=== PATIENT | male | born 1965 | race Caucasian/White ===

== ENCOUNTER 2018-12-14 16:34 | Emergency (ER) | payer MEDICARE, OTHER, SELFPAY ==
[2018-12-14] VITALS (24 sets, daily range): BP systolic 113–144; BP diastolic 47–108; PULSE 71–139; RESP 10–46; TEMP 36.9; O2SAT 94–99
[2018-12-14 17:15] LABS: Absolute Basophil Count 0.01 k/cumm (0.0-0.2); Absolute Monocyte Count 0.35 k/cumm (0.11-0.7); Absolute Neutrophil Count 2.77 k/cumm (1.2-6.7); Basophils % 0.3; Eosinophils % 5.1; HCT 25.8 % (40.0-50.0); HGB 8.2 g/dL (13.5-17.5); Lymphocytes % 15.3; Mean Corp. HGB Concentration 31.8 g/dL (32.0-36.0); Mean Corpuscular Volume 107.1 fL (80-95); Mean Platelet Volume 8.9 fL (8.0-11.0); Monocytes % 8.9; Neutrophils % 70.4; Platelet Count 215 x1000/uL (130-400); RBC 2.41 m/cumm (4.50-6.00); RBC Distribution Width 15.7 % (11.8-14.1); White Blood Cell Count 3.93 k/cumm (4.4-10.8)
--- NOTE | 2018-12-14 17:20 | ED.GENADUL_ITS ---
Discharge Plan Disposition Patient Disposition: HOME Condition: Improving Discharge Details Chief Complaint: GenMedical Clinical Impression: Hypocalcemia Primary Care Provider: Adalberto Ly ED Provider: Axel Nicole Home Meds and New Rx's Prescriptions: No Action Renal Vitamin 0.8 mg tablet 1 tab PO DAILY RF: 0 omeprazole 20 mg capsule,delayed release(DR/EC) 20 mg PO DAILY RF: 0 pen needle, diabetic 1 EACH needle 1 ea Sub-Q BID Qty: 100 RF: 5 gabapentin 100 MG capsule 100 mg PO As directed Qty: 270 RF: 4 FreeStyle Lite Strips strip 1 ea Miscellaneous TID Qty: 200 RF: 5 heparin (porcine) 5,000 UNITS/ML solution 5,000 units DIRECTED RF: 0 sevelamer HCl [Renagel] 800 mg tablet 800 mg PO .DAILY W/MEALS PRNRF: 0 Humalog U-100 Insulin 100 unit/mL Cartridge RF: 0 calcitriol 0.5 mcg Capsule 0.5 mcg PO BID RF: 0 Discharge Instructions Instructions: Hypocalcemia (ED) Additional Instructions: You have notable hypocalcemia, per your request, he will be going home. Please continue taking your supplements and Tums. It is absolutely imperative that if you have any return of your symptoms that you return immediately. Do not miss your dialysis appointment tomorrow. If you notice any worsening of your symptoms, or any new symptoms such as vomiting, diarrhea, fever, chills, shortness of breath, chest pain, numbness, weakness, or fainting , please return immediately to the emergency department for reevaluation. Please follow up with your primary care provider as soon as possible for reassessment and reevaluation. As always, it was a pleasure participating in your medical care today. Referrals: Adalberto Ly MD [Primary Care Provider] - Discharge Data Discharge Date/Time-TO BE ENTERED AT DEPARTURE: 12/14/18 20:18 Medical Decision Making This is a pleasant 53-year-old male with a past surgical history of bilateral nephrectomy secondary to cancer currently on dialysis Tuesday, gastric bypass, and recent parathyroidectomy 1 week ago. He presents with numbness and tingling in his fingers and toes. He also feels notably fatigued and weak. No focal neurologic deficits, no clinical evidence of stroke. Signs and symptoms are notably concerning for calcium abnormality. He shows no evidence of significant tetany, so I feel that his calcium is most likely mildly low. We will rehydrate, evaluate for his electrolyte status, and reassess. 9:00 PM Patient's laboratory work-up has returned, calcium is low at 7.2. Patient was given 1 amp of calcium gluconate, and he tolerated this well. The remainder of his electrolytes are all within normal limits. Hemoglobin is slightly low but near his baseline. Patient's calcium is normally at a lower baseline around 8.0-8.1. On electrolyte recheck his calcium has come up to 7.5. The patient states that the numbness and tingling has resolved, he feels much more energetic and does not feel the fatigue but he had previously. Repeat neurologic exam continues to show no focal neurologic deficits. Subjective sensation component is notably improved. I did talk to the patient about staying overnight for continued calcium replacement, however the patient made it very clear that he would not be staying overnight and that he would like to go home. He does have dialysis tomorrow, he states that he can get checked out again at that time. I discussed with him the risks of this plan, the patient understands this. I did give the patient additional options of further work-up and treatment here in the ED, but he made it clear that he would like to be discharged now. Respecting the patient's wishes, and in light of the notable clinical improvement with the incremental improvement in his calcium via a laboratory perspective, I feel that his discharge is not advised, but the patient understands the risks of this and accepts these risks. Patient will be discharged home with close follow-up tomorrow, dialysis tomorrow. I feel that his hypocalcemia is secondary to his parathyroid surgery, and a lack of proper repletion at dialysis. Discussed the importance of close follow-up with his primary care provider as well as his thyroid surgeon in regards to this. I have extensively reviewed the treatment plan and discharge instructions with the patient and their family. I have addressed all patient concerns at this time. The patient and family was made aware of what symptoms to monitor for that would warrant a return to the emergency department. Discussed the plan with the patient and family, they demonstrate verbal understanding and agreement with our assessment and plan at this time. EKG 16: 51 Rate 78, sinus rhythm, KS 206, QTc 490, QRS 100, no significant ST elevations or depressions, no significant T wave inversions, no Q waves. HPI General Date/Time Provider Initiated Documentation: 12/14/18 16:41 . HPI Narrative: This is a pleasant 53-year-old male with a past medical history of gastric bypass surgery, bilateral nephrectomy secondary to cancer now on dialysis Tuesday, and recent parathyroid surgery 1 week ago, who presents today for evaluation of fatigue, weakness, and tingling in his hands and feet. Patient states that he has been taking his calcitriol, and numerous Tums pills after his parathyroid surgery, however his symptoms have continued and worsened. He denies any chest pain, chest heaviness, shortness of breath, nausea, vomiting, diarrhea, arm neck or shoulder pain, headache, or neck stiffness. He denies any other complaints. He denies any other modifying factors. He denies any postoperative pain at the surgical site. Related Data Home Medications Medication Instructions Recorded Confirmed heparin (porcine) 5,000 units DIRECTED 02/24/16 12/14/18 pen needle, diabetic #100 ea 05/24/17 07/06/18 gabapentin 100 mg PO As directed #270 cap 01/18/18 12/14/18 omeprazole 20 mg capsule,delayed 20 mg PO DAILY 05/02/18 12/14/18 release sevelamer HCl 800 mg tablet 800 mg PO .DAILY W/MEALS PRN 05/02/18 12/14/18 vitamin B complex-vitamin C-folic 1 tab PO DAILY 05/02/18 12/14/18 acid 0.8 mg tablet blood sugar diagnostic strips #200 strip 11/07/18 calcitriol 0.5 mcg PO BID 12/14/18 12/14/18 insulin lispro [Humalog U-100 12/14/18 Insulin] Previous Rx's Medication Instructions Recorded pen needle, diabetic #100 ea 05/24/17 gabapentin 100 mg PO As directed #270 cap 01/18/18 blood sugar diagnostic strips #200 strip 11/07/18 Allergies Allergy/AdvReac Type Severity Reaction Status Date / Time simvastatin AdvReac Intermediate PROBLEMS Unverified 12/14/18 17:06 WITH FEET General Stated Complaint: GenMedical HIEU: 3 Review of Systems Review of Systems All systems reviewed & are unremarkable except as noted in HPI and below PFSH Medical History DM (diabetes mellitus) Diabetic retinopathy End stage renal failure on dialysis Surgical History Status post laparoscopic sleeve gastrectomy (Chronic) Colonoscopy - MAC (08/03/17) Nephrectomy (06/30/11) vitrectomy x 3 Family History Maternal Grandmother Lobular carcinoma of breast Mother No problems noted. Father No problems noted. Brother Hyperlipidemia Daughter No problems noted. Daughter No problems noted. Daughter No problems noted. Social History Smoking/Tobacco Use Status: Former Tobacco Use Quit Date: 06/13/92 Second Hand Exposure: Yes Alcohol Intake: never Drug use: Current Sobriety Substance use type: does not use Pets and animals: No Duration: < 15 minutes/day Frequency: daily Nani/Worship: Restorationism Special nani needs: No Do you feel safe in your relationship?: Yes Exam Narrative Exam Narrative: 1.Const: Well-nourished, Well-developed, appearing stated age 2.Eyes: PERRL, no conjunctival injection, and symmetrical lids. 3.ENT: Atraumatic external nose and ears. Moist MM. Neck: Symmetric, trachea midline, No thyromegaly. 4.CVS: +S1/S2, No murmurs or gallops. Peripheral pulses 2+ and equal in all extremities. Brisk capillary refill in all extremities. 5.RESP: Unlabored respiratory effort. Clear to auscultation bilaterally. No wheezes rales or rhonchi 6.GI: Soft, Nontender/Nondistended, No hepatosplenomegaly. No guarding or rebound. 7.MSK: Normocephalic/Atraumatic, Extremities w/o deformity or ttp No cyanosis or clubbing, Normal movement of all extremities. Negative Chvostic and Trousseau sign. Patellar reflex +1 bilaterally. No evidence of tetany for the arms or lower extremities. 8.Skin: Warm, Dry. No rashes or lesions. Mild pallor 9.Neuro: environment coordinator II-XII grossly intact. Sensation grossly intact, no focal neurologic deficits. Two-point discrimination is intact on the fingers and in spite of his subjective symptoms of tingling. Sensation is decreased in the lower extremities, he does have a history of peripheral neuropathy. All 6 cardinal planes of vision are fully intact. No evidence of rotatory or vertical nystagmus. The patient demonstrated a normal gvlfmm-yglm-kezmqe, good dexterity. There was no evidence of dysdiadochokinesia. Patient was able to ambulate without difficulty. There was no wide-based gait. Romberg, and cceb-si-tinn are both normal on testing. Sensation was intact bilaterally as well as muscle strength bilaterally for all extremities. Patient was able to verbalize butter cup with no slurring, or miss pronunciation. 10.Psych: (AAO) x3. Appropriate mood and affect Course Vital Signs Temperature 36.9 C 12/14/18 16:42 Pulse 79 12/14/18 16:42 Respiratory Rate 16 12/14/18 16:42 Blood Pressure 134/65 12/14/18 16:42 Pulse Oximetry 96 12/14/18 16:42 Temperature 36.9 C 12/14/18 16:42 Temperature Source Skin 12/14/18 16:42 Pulse 79 12/14/18 16:42 Respiratory Rate 16 12/14/18 16:42 Respiratory Effort Non-Labored 12/14/18 16:42 Blood Pressure 134/65 12/14/18 16:42 Pulse Oximetry 96 12/14/18 16:42 Oxygen Delivery Method Room Air 12/14/18 16:42 Oxygen Flow Rate 0 12/14/18 16:42 Pain Level 3 12/14/18 16:42
[2018-12-14 17:33] LABS: ALT 8 U/L (12-78); AST 6 U/L (15-37); Albumin 3.1 g/dL (3.4-5.0); Alkaline Phosphatase 106 U/L (46-116); Anion Gap 8.9 mmol/L (3-11); BUN 60 mg/dL (7-18); Bilirubin, Total 0.6 mg/dL (0.2-1.0); CO2 32.1 mmol/L (21.0-32.0); Calcium 7.2 mg/dL (8.5-10.1); Chloride 100 mmol/L (98-107); Estimated GFR 6.42 (mL/min/1.73m2); Glucose 175 mg/dL (70-100); Sodium 141 mmol/L (136-145); TSH (W/Ref FT4) 0.03 uIU/mL (0.358-3.74); Total Protein 7.2 g/dL (6.4-8.2)
[2018-12-14 17:36] LABS: CREATININE 8.75 mg/dL (0.70-1.30); Troponin I < 0.05 ng/mL (0.00-0.06)
[2018-12-14 17:49] LABS: Anisocytosis 2+; Diff Comment RBC Morph Reviewed; Macrocytosis 3+; Polychromasia Present
[2018-12-14 18:46] LABS: FREE T4 1.92 ng/dL (0.76-1.46)
[2018-12-14 19:01] LABS: ALT 15 U/L (12-78); AST 13 U/L (15-37); Albumin 2.9 g/dL (3.4-5.0); Alkaline Phosphatase 101 U/L (46-116); Anion Gap 10.1 mmol/L (3-11); BUN 60 mg/dL (7-18); Bilirubin, Total 0.6 mg/dL (0.2-1.0); CO2 30.9 mmol/L (21.0-32.0); Calcium 7.5 mg/dL (8.5-10.1); Chloride 101 mmol/L (98-107); Estimated GFR 6.34 (mL/min/1.73m2); Glucose 135 mg/dL (70-100); Sodium 142 mmol/L (136-145)
[2018-12-14 19:08] LABS: CREATININE 8.85 mg/dL (0.70-1.30)
[2018-12-16 14:07] LABS: Calcitonin <5.0 pg/mL (<=14.3)
== END 2018-12-14 20:18 | disposition home or self-care (01) ==
PROVIDERS: Emergency Provider Student in an Organized Health Care Education/Training Program; PCP Family Medicine
DX: E83.51 Hypocalcemia (principal); Z90.5 Acquired absence of kidney; Z85.528 Personal history of other malignant neoplasm of kidney; Z99.2 Dependence on renal dialysis; E89.2 Postprocedural hypoparathyroidism; E11.22 Type 2 diabetes mellitus with diabetic chronic kidney disease; N18.6 End stage renal disease
CPT/HCPCS: 36415; 80053; 93005; 96365; 99284; 82308; 83735; 84439; 84443; 84484; 85025; 93010; J0610

== ENCOUNTER 2019-03-23 02:41 | Outpatient (CLI) | payer MEDICARE, SELFPAY ==
[2019-03-23 10:18] LABS: HCT 34.1 % (40.0-50.0); Mean Corp. HGB Concentration 32.3 g/dL (32.0-36.0); Mean Corpuscular Hemoglobin 31.8 pg (27.0-33.0); Mean Corpuscular Volume 98.6 fL (80-95); Mean Platelet Volume 8.9 fL (8.0-11.0); Platelet Count 308 x1000/uL (130-400); RBC 3.46 m/cumm (4.50-6.00); RBC Distribution Width 15.4 % (11.8-14.1); White Blood Cell Count 4.86 k/cumm (4.4-10.8)
[2019-03-23 11:41] LABS: ALT 17 U/L (16-63); AST 12 U/L (15-37); Albumin 3.7 g/dL (3.4-5.0); Alkaline Phosphatase 67 U/L (46-116); Anion Gap 11.9 mmol/L (3-11); BUN 47 mg/dL (7-18); Bilirubin, Total 0.3 mg/dL (0.2-1.0); CO2 23.1 mmol/L (21.0-32.0); CREATININE 2.31 mg/dL (0.70-1.30); Calcium 7.7 mg/dL (8.5-10.1); Chloride 106 mmol/L (98-107); Estimated GFR 29.86 (mL/min/1.73m2); Glucose 108 mg/dL (70-100); Potassium 4.9 mmol/L (3.5-5.1); Sodium 141 mmol/L (136-145); Total Protein 7.1 g/dL (6.4-8.2); Uric Acid 9.1 mg/dL (3.5-7.2)
[2019-03-23 11:51] LABS: Cholesterol 228 mg/dL (50-200)
[2019-03-24 12:20] LABS: Tacrolimus 7.2 ng/ml
== END 2019-03-23 03:01 ==
PROVIDERS: PCP Family Medicine; Visit Provider Internal Medicine Nephrology
DX: N25.81 Secondary hyperparathyroidism of renal origin (principal); Z94.0 Kidney transplant status; Z79.899 Other long term (current) drug therapy; Z29.8 Encounter for other specified prophylactic measures
CPT/HCPCS: 36415; 80053; 85027; 80197; 81003; 82465; 82565; 83735; 84156; 84550

== ENCOUNTER 2019-04-03 08:05 | Outpatient (CLI) | payer MEDICARE, OTHER, SELFPAY ==
[2019-04-03 08:55] LABS: HCT 36.5 % (40.0-50.0); HGB 11.7 g/dL (13.5-17.5); Mean Corp. HGB Concentration 32.1 g/dL (32.0-36.0); Mean Corpuscular Hemoglobin 31.2 pg (27.0-33.0); Mean Corpuscular Volume 97.3 fL (80-95); Mean Platelet Volume 9.1 fL (8.0-11.0); Platelet Count 312 x1000/uL (130-400); RBC 3.75 m/cumm (4.50-6.00); RBC Distribution Width 15.3 % (11.8-14.1); White Blood Cell Count 5.05 k/cumm (4.4-10.8)
[2019-04-03 09:41] LABS: Bilirubin Negative (Negative); Blood Negative (Negative); Clarity Clear (Clear); Glucose Negative (Negative); Ketones Negative (Negative); Leukocyte Esterase Negative (Negative); Nitrite Negative (Negative); Specific Gravity 1.015 (1.005-1.025); Urobilinogen 0.2 EU/dL (Up TO 0.2); pH 5.5 (5-8)
[2019-04-03 10:37] LABS: PROTEIN 16.1 mg/dL
[2019-04-03 10:41] LABS: ALT 18 U/L (16-63); AST 12 U/L (15-37); Albumin 3.6 g/dL (3.4-5.0); Alkaline Phosphatase 62 U/L (46-116); Anion Gap 12.6 mmol/L (3-11); BUN 47 mg/dL (7-18); Bilirubin, Total 0.4 mg/dL (0.2-1.0); CO2 22.4 mmol/L (21.0-32.0); CREATININE 2.26 mg/dL (0.70-1.30); Calcium 8.5 mg/dL (8.5-10.1); Chloride 105 mmol/L (98-107); Estimated GFR 30.62 (mL/min/1.73m2); Glucose 124 mg/dL (70-100); Magnesium 1.8 mg/dL (1.8-2.4); PHOSPHORUS 3.4 mg/dL (2.6-4.7); Potassium 4.6 mmol/L (3.5-5.1); Sodium 140 mmol/L (136-145); Total Protein 6.8 g/dL (6.4-8.2); Uric Acid 8.9 mg/dL (3.5-7.2)
[2019-04-03 11:07] LABS: COMMENT (LAB VIEW ONLY) 57.74 mg/dL; Prot/Crea Ur Ratio 0.27
[2019-04-03 11:26] LABS: Cholesterol 241 mg/dL (50-200)
[2019-04-11 08:57] LABS: Tacrolimus 8.8 ng/ml
== END 2019-04-03 08:25 ==
PROVIDERS: PCP Family Medicine; Visit Provider Internal Medicine Nephrology
DX: Z94.0 Kidney transplant status (principal); Z79.899 Other long term (current) drug therapy
CPT/HCPCS: 36415; 80053; 85027; 80197; 81003; 82465; 82565; 83735; 84100; 84156; 84550

== ENCOUNTER 2019-07-20 08:19 | Outpatient (CLI) | payer MEDICARE, OTHER, SELFPAY ==
[2019-07-20 08:50] LABS: HCT 40.7 % (40.0-50.0); HGB 13.8 g/dL (13.5-17.5); Mean Corp. HGB Concentration 33.9 g/dL (32.0-36.0); Mean Corpuscular Hemoglobin 31.2 pg (27.0-33.0); Mean Corpuscular Volume 91.9 fL (80-95); Mean Platelet Volume 9.4 fL (8.0-11.0); Platelet Count 225 x1000/uL (130-400); RBC 4.43 m/cumm (4.50-6.00); RBC Distribution Width 14.8 % (11.8-14.1)
[2019-07-20 08:51] LABS: Bilirubin Negative (Negative); Blood Negative (Negative); Clarity Clear (Clear); Glucose Negative (Negative); Ketones Negative (Negative); Leukocyte Esterase Negative (Negative); Nitrite Negative (Negative); Specific Gravity 1.015 (1.005-1.025); Urobilinogen 0.2 EU/dL (Up TO 0.2)
[2019-07-20 09:32] LABS: ALT 29 U/L (16-63); AST 24 U/L (15-37); Albumin 4.1 g/dL (3.4-5.0); Alkaline Phosphatase 67 U/L (46-116); BUN 53 mg/dL (7-18); Bilirubin, Total 0.4 mg/dL (0.2-1.0); CREATININE 2.41 mg/dL (0.70-1.30); Calcium 8.4 mg/dL (8.5-10.1); Chloride 107 mmol/L (98-107); Estimated GFR 28.43 (mL/min/1.73m2); Glucose 71 mg/dL (74-106); Magnesium 1.7 mg/dL (1.8-2.4); PHOSPHORUS 3.5 mg/dL (2.6-4.7); Potassium 4.5 mmol/L (3.5-5.1); Sodium 144 mmol/L (136-145); Total Protein 7.2 g/dL (6.4-8.2); Uric Acid 8.5 mg/dL (3.5-7.2)
[2019-07-20 09:34] LABS: Cholesterol 240 mg/dL (<200)
[2019-07-20 09:38] LABS: White Blood Cell Count 1.65 k/cumm (4.4-10.8)
[2019-07-20 09:43] LABS: PROTEIN 17.4 mg/dL
[2019-07-20 09:46] LABS: COMMENT (LAB VIEW ONLY) 82.39 mg/dL; Prot/Crea Ur Ratio 0.21
[2019-07-23 14:20] LABS: Tacrolimus 10.3 ng/mL (See Note)
== END 2019-07-20 08:39 ==
PROVIDERS: PCP Family Medicine; Visit Provider Internal Medicine Nephrology
DX: Z94.0 Kidney transplant status (principal); Z79.899 Other long term (current) drug therapy
CPT/HCPCS: 36415; 80053; 85027; 80197; 81003; 82465; 82565; 83735; 84100; 84156; 84550

== ENCOUNTER 2019-08-14 08:46 | Outpatient (CLI) | payer MEDICARE, OTHER, SELFPAY ==
[2019-08-14 09:54] LABS: PROTEIN 6.2 mg/dL
[2019-08-14 10:09] LABS: COMMENT (LAB VIEW ONLY) 24.92 mg/dL; Prot/Crea Ur Ratio 0.24
[2019-08-14 10:11] LABS: Bilirubin Negative (Negative); Blood Negative (Negative); Clarity Clear (Clear); Glucose Negative (Negative); Ketones Negative (Negative); Leukocyte Esterase Negative (Negative); Nitrite Negative (Negative); Urobilinogen 0.2 EU/dL (Up TO 0.2); pH 5.5 (5-8)
[2019-08-14 10:16] LABS: HCT 38.5 % (40.0-50.0); HGB 13.1 g/dL (13.5-17.5); Mean Corpuscular Volume 94.1 fL (80-95); Platelet Count 220 x1000/uL (130-400); RBC 4.09 m/cumm (4.50-6.00); RBC Distribution Width 15.2 % (11.8-14.1); White Blood Cell Count 2.66 k/cumm (4.4-10.8)
[2019-08-14 10:21] LABS: Cholesterol 255 mg/dL (<200)
[2019-08-14 10:23] LABS: ALT 30 U/L (16-63); AST 26 U/L (15-37); Albumin 3.9 g/dL (3.4-5.0); Alkaline Phosphatase 64 U/L (46-116); Anion Gap 11.2 mmol/L (3-11); BUN 50 mg/dL (7-18); Bilirubin, Total 0.5 mg/dL (0.2-1.0); CO2 23.8 mmol/L (21.0-32.0); CREATININE 2.25 mg/dL (0.70-1.30); Calcium 7.8 mg/dL (8.5-10.1); Chloride 104 mmol/L (98-107); Estimated GFR 30.78 (mL/min/1.73m2); Glucose 106 mg/dL (74-106); Magnesium 1.8 mg/dL (1.8-2.4); PHOSPHORUS 3.5 mg/dL (2.6-4.7); Potassium 4.8 mmol/L (3.5-5.1); Sodium 139 mmol/L (136-145); Uric Acid 7.9 mg/dL (3.5-7.2)
[2019-08-15 14:16] LABS: Tacrolimus 7.3 ng/mL (See Note)
== END 2019-08-14 09:06 ==
PROVIDERS: PCP Family Medicine; Visit Provider Internal Medicine Nephrology
DX: Z94.0 Kidney transplant status (principal); Z79.899 Other long term (current) drug therapy
CPT/HCPCS: 36415; 80053; 85027; 80197; 81003; 82465; 82565; 83735; 84100; 84156; 84550

== ENCOUNTER 2019-09-17 01:51 | Outpatient (CLI) | payer OTHER, MEDICARE, SELFPAY ==
[2019-09-17 07:30] LABS: Bilirubin Negative (Negative); Blood Negative (Negative); Clarity Clear (Clear); Glucose Negative (Negative); Ketones Negative (Negative); Leukocyte Esterase Negative (Negative); Nitrite Negative (Negative); Specific Gravity 1.015 (1.005-1.025); Urobilinogen 0.2 EU/dL (Up TO 0.2); pH 6.5 (5-8)
[2019-09-17 07:33] LABS: HCT 38.7 % (40.0-50.0); HGB 13.3 g/dL (13.5-17.5); Mean Corp. HGB Concentration 34.4 g/dL (32.0-36.0); Mean Corpuscular Hemoglobin 33.1 pg (27.0-33.0); Mean Corpuscular Volume 96.3 fL (80-95); Mean Platelet Volume 9.8 fL (8.0-11.0); Platelet Count 213 x1000/uL (130-400); RBC 4.02 m/cumm (4.50-6.00); RBC Distribution Width 14.5 % (11.8-14.1); White Blood Cell Count 3.59 k/cumm (4.4-10.8)
[2019-09-17 08:15] LABS: Hemoglobin A1C 5.9 % (3.8-5.6)
[2019-09-17 08:22] LABS: PROTEIN 8.8 mg/dL
[2019-09-17 08:24] LABS: COMMENT (LAB VIEW ONLY) 53.25 mg/dL; Prot/Crea Ur Ratio 0.16
[2019-09-17 08:25] LABS: Cholesterol 251 mg/dL (<200)
[2019-09-17 08:34] LABS: ALT 35 U/L (16-63); AST 27 U/L (15-37); Albumin 3.9 g/dL (3.4-5.0); Alkaline Phosphatase 62 U/L (46-116); Anion Gap 10.9 mmol/L (3-11); BUN 46 mg/dL (7-18); Bilirubin, Total 0.5 mg/dL (0.2-1.0); CO2 26.1 mmol/L (21.0-32.0); CREATININE 2.41 mg/dL (0.70-1.30); Calcium 8.7 mg/dL (8.5-10.1); Chloride 102 mmol/L (98-107); Estimated GFR 28.43 (mL/min/1.73m2); Glucose 119 mg/dL (74-106); Magnesium 1.7 mg/dL (1.8-2.4); PHOSPHORUS 4.3 mg/dL (2.6-4.7); Potassium 4.4 mmol/L (3.5-5.1); Sodium 139 mmol/L (136-145); Total Protein 7.3 g/dL (6.4-8.2); Uric Acid 8.2 mg/dL (3.5-7.2)
[2019-09-18 13:07] LABS: Tacrolimus 8.3 ng/mL (See Note)
== END 2019-09-17 02:11 ==
PROVIDERS: PCP Family Medicine; Visit Provider Internal Medicine Nephrology
DX: E11.9 Type 2 diabetes mellitus without complications (principal); Z94.0 Kidney transplant status; Z79.899 Other long term (current) drug therapy; Z51.81 Encounter for therapeutic drug level monitoring
CPT/HCPCS: 36415; 80053; 85027; 80197; 81003; 82465; 82565; 83036; 83735; 84100; 84156; 84550

== ENCOUNTER 2019-10-23 01:37 | Outpatient (CLI) | payer OTHER, MEDICARE, SELFPAY ==
[2019-10-23 16:34] LABS: HCT 39.7 % (40.0-50.0); HGB 13.5 g/dL (13.5-17.5); Mean Corpuscular Hemoglobin 32.1 pg (27.0-33.0); Mean Corpuscular Volume 94.5 fL (80-95); Mean Platelet Volume 9.8 fL (8.0-11.0); Platelet Count 202 x1000/uL (130-400)
[2019-10-23 16:36] LABS: Bilirubin Negative (Negative); Blood Negative (Negative); Clarity Clear (Clear); Glucose Negative (Negative); Ketones Negative (Negative); Leukocyte Esterase Negative (Negative); Nitrite Negative (Negative); Urobilinogen 0.2 EU/dL (Up TO 0.2); pH 5.5 (5-8)
[2019-10-23 17:31] LABS: PROTEIN < 6.0 mg/dL
[2019-10-23 17:32] LABS: COMMENT (LAB VIEW ONLY) 33.26 mg/dL
[2019-10-23 17:36] LABS: Cholesterol 248 mg/dL (<200)
[2019-10-23 17:40] LABS: ALT 34 U/L (16-63); AST 26 U/L (15-37); Alkaline Phosphatase 66 U/L (46-116); Anion Gap 11.7 mmol/L (3-11); BUN 44 mg/dL (7-18); Bilirubin, Total 0.4 mg/dL (0.2-1.0); CO2 22.3 mmol/L (21.0-32.0); CREATININE 2.37 mg/dL (0.70-1.30); Calcium 8.6 mg/dL (8.5-10.1); Chloride 103 mmol/L (98-107); Estimated GFR 28.88 (mL/min/1.73m2); Glucose 115 mg/dL (74-106); Magnesium 1.7 mg/dL (1.8-2.4); PHOSPHORUS 4.3 mg/dL (2.6-4.7); Potassium 4.3 mmol/L (3.5-5.1); Sodium 137 mmol/L (136-145); Total Protein 7.3 g/dL (6.4-8.2); Uric Acid 8.3 mg/dL (3.5-7.2)
[2019-10-23 18:27] LABS: White Blood Cell Count 2.17 k/cumm (4.4-10.8)
[2019-10-25 15:33] LABS: Tacrolimus 10.7 ng/mL (See Note)
== END 2019-10-23 01:57 ==
PROVIDERS: PCP Family Medicine; Visit Provider Internal Medicine Nephrology
DX: Z94.0 Kidney transplant status (principal); Z79.899 Other long term (current) drug therapy
CPT/HCPCS: 36415; 80053; 85027; 80197; 81003; 82465; 82565; 83735; 84100; 84156; 84550

== ENCOUNTER 2020-02-18 18:16 | Emergency (ER) | payer MEDICARE, OTHER, SELFPAY ==
[2020-02-18 18:21] VITALS: BP 136/63; PULSE 91; RESP 18; TEMP 36.5; O2SAT 98
--- NOTE | 2020-02-18 18:30 | DI.RAD_ITS ---
EXAM: XR TOE LT SECOND CLINICAL HISTORY: diabetic foot infection ? osteo. TECHNIQUE: 2D digital imaging was performed. COMPARISON: No exams were available for comparison FINDINGS: BONES: No acute fracture is present. No bony destructive lesion is seen. The tip of the distal phal anx is not optimally profiled. JOINTS: No dislocation present. SOFT TISSUE: Vascular calcifications. Soft tissue swelling around the distal aspect of the 2nd toe. IMPRESSION: No no radiographic evidence of osteomyelitis. DATA REPOSITORY: RADIATION DOSE DELIVERED:
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
[2020-02-18 19:20] LABS: Abs Immature Grans 0.05 10^3/uL (0.0-0.06); Absolute Basophil Count 0.02 10^3/uL (0.0-0.2); Absolute Eosinophil Count 0.11 10^3/uL (0.0-0.7); Absolute Lymphocyte Count 0.55 10^3/uL (1.2-3.4); Absolute Monocyte Count 0.83 10^3/uL (0.1-0.8); Absolute Neutrophil Count 6.68 10^3/uL (1.2-6.7); Basophils % 0.2; Eosinophils % 1.3; HCT 35.4 % (40.0-50.0); HGB 11.6 g/dL (13.5-17.5); Immature Grans % 0.6; Lymphocytes % 6.7; MCHC 32.8 % (32.0-36.0); MCV 97.5 fL (80-95); MPV 9.8 fL (8.0-11.0); Monocytes % 10.1; Neutrophils % 81.1; Nucleated RBC 0 %; Platelet Count 203 10^3/uL (130-400); RBC 3.63 10^6/uL (4.36-5.78); RDW 15.4 % (11.8-14.1); RDW-SD 55.6 fL; WBC 8.24 10^3/uL (4.4-10.8)
[2020-02-18 19:33] LABS: ALT 20 U/L (16-63); AST 14 U/L (15-37); Albumin 3.4 g/dL (3.4-5.0); Alkaline Phosphatase 65 U/L (46-116); Anion Gap 9.3 mmol/L (3-11); BUN 41 mg/dL (7-18); Bilirubin, Total 0.4 mg/dL (0.2-1.0); C-Reactive Protein 5.38 mg/dL (0.0-0.3); CO2 23.7 mmol/L (21.0-32.0); CREATININE 1.91 mg/dL (0.70-1.30); Calcium 8.5 mg/dL (8.5-10.1); Chloride 103 mmol/L (98-107); Estimated GFR 37.04 (mL/min/1.73m2); Glucose 114 mg/dL (74-106); Potassium 3.8 mmol/L (3.5-5.1); Sodium 136 mmol/L (136-145); Total Protein 7.3 g/dL (6.4-8.2)
[2020-02-18 19:58] LABS: ESR 61 mm/hr (1-20)
--- NOTE | 2020-02-18 19:58 | DI.VRAD_ITS ---
PROCEDURE INFORMATION: Exam: XR Left Toe(s) Exam date and time: 02/18/2020 19:37 Age: 54 years old Clinical indication: Toes; Patient HX: Left 2nd pain with open sore; Additional info: Diabetic foot infection ? osteo TECHNIQUE: Imaging protocol: XR Left toes. Views: Minimum 2 views. COMPARISON: No relevant prior studies available. FINDINGS: Bones/joints: The 2nd distal phalangeal tuft appears somewhat truncated on frontal imaging however on the lateral view there is no convincing erosion given digital overlap. No acute fracture or subluxation. Soft tissues: Digital soft tissue swelling. Vasculature: Atherosclerosis. IMPRESSION: No definitive erosion of the 2nd phalanges, however the distal phalanx is not optimally seen on the lateral view. Could be further worked up with MRI if clinically indicated. Dictated and Authenticated by: Wanda Langford MD. Ordering:GANGA Cantor MD
[2020-02-18] MEDS: PIPERACILLIN/TAZO 4.5 GM in Normal Saline 100 ML IVPB (21:00)
[2020-02-18 21:38] VITALS: BP 125/64; PULSE 74; RESP 20; TEMP 36.5; O2SAT 97
[2020-02-18] MEDS: Amoxicillin 500/Clav. 125 TAB PO (21:39)
== END 2020-02-18 21:40 | disposition home or self-care (01) ==
PROVIDERS: Emergency Provider Nurse Practitioner Acute Care; PCP Family Medicine
DX: E11.628 Type 2 diabetes mellitus with other skin complications (principal); E11.319 Type 2 diabetes mellitus with unspecified diabetic retinopathy without macular edema; Z79.4 Long term (current) use of insulin; Z94.0 Kidney transplant status
CPT/HCPCS: 36415; 80053; 85652; 87040; 96365; 99284; 73660; 85025; 86140; J2543

== ENCOUNTER 2020-03-20 01:35 | Outpatient (CLI) | payer MEDICARE, OTHER, SELFPAY ==
[2020-03-20 07:45] LABS: HCT 37.8 % (40.0-50.0); HGB 12.5 g/dL (13.5-17.5); MCH 32.1 pg (27.0-33.0); MCHC 33.1 % (32.0-36.0); MCV 97.2 fL (80-95); Platelet Count 194 10^3/uL (130-400); RBC 3.89 10^6/uL (4.36-5.78); RDW 14.4 % (11.8-14.1); RDW-SD 51.6 fL; WBC 7.69 10^3/uL (4.4-10.8)
[2020-03-20 07:46] LABS: Bilirubin Negative (Negative); Blood Negative (Negative); Clarity Clear (Clear); Glucose Negative (Negative); Ketones Negative (Negative); Leukocyte Esterase Negative (Negative); Nitrite Negative (Negative); Urobilinogen 0.2 EU/dL (Up TO 0.2)
[2020-03-20 08:13] LABS: COMMENT (LAB VIEW ONLY) 169.26 mg/dL; Prot/Crea Ur Ratio 0.13
[2020-03-20 08:27] LABS: Cholesterol 156 mg/dL (<200)
[2020-03-20 08:31] LABS: ALT 30 U/L (16-63); AST 22 U/L (15-37); Albumin 3.6 g/dL (3.4-5.0); Alkaline Phosphatase 69 U/L (46-116); Anion Gap 7.9 mmol/L (3-11); BUN 41 mg/dL (7-18); Bilirubin, Total 0.7 mg/dL (0.2-1.0); CO2 27.1 mmol/L (21.0-32.0); CREATININE 2.03 mg/dL (0.70-1.30); Calcium 8.8 mg/dL (8.5-10.1); Chloride 104 mmol/L (98-107); Estimated GFR 34.53 (mL/min/1.73m2); Glucose 157 mg/dL (74-106); Magnesium 1.5 mg/dL (1.8-2.4); PHOSPHORUS 3.3 mg/dL (2.6-4.7); Potassium 4.2 mmol/L (3.5-5.1); Sodium 139 mmol/L (136-145); Total Protein 6.9 g/dL (6.4-8.2); Uric Acid 6.9 mg/dL (3.5-7.2)
[2020-03-21 13:08] LABS: Tacrolimus 11.5 ng/mL (See Note)
== END 2020-03-20 01:55 ==
PROVIDERS: PCP Family Medicine; Visit Provider Internal Medicine Nephrology
DX: Z94.0 Kidney transplant status (principal); Z79.899 Other long term (current) drug therapy; Z51.81 Encounter for therapeutic drug level monitoring
CPT/HCPCS: 36415; 80053; 85027; 80197; 81003; 82465; 82565; 83735; 84100; 84156; 84550

== ENCOUNTER 2020-04-08 02:40 | Outpatient (CLI) | payer MEDICARE, OTHER, SELFPAY ==
[2020-04-08 10:14] LABS: HCT 38.4 % (40.0-50.0); HGB 12.5 g/dL (13.5-17.5); MCH 31.6 pg (27.0-33.0); MCHC 32.6 % (32.0-36.0); Platelet Count 186 10^3/uL (130-400); RBC 3.96 10^6/uL (4.36-5.78); RDW 13.8 % (11.8-14.1); RDW-SD 49.3 fL; WBC 6.91 10^3/uL (4.4-10.8)
[2020-04-08 10:16] LABS: Cholesterol 154 mg/dL (<200)
[2020-04-08 10:16] LABS: Bilirubin Negative (Negative); Blood Negative (Negative); Clarity Clear (Clear); Glucose Negative (Negative); Ketones Negative (Negative); Leukocyte Esterase Negative (Negative); Nitrite Negative (Negative); Specific Gravity 1.025 (1.005-1.025); Urobilinogen 0.2 EU/dL (Up TO 0.2); pH 6.5 (5-8)
[2020-04-08 10:27] LABS: Albumin 3.5 g/dL (3.4-5.0); Alkaline Phosphatase 68 U/L (46-116); BUN 41 mg/dL (7-18); Bilirubin, Total 0.6 mg/dL (0.2-1.0); CREATININE 1.84 mg/dL (0.70-1.30); Calcium 8.7 mg/dL (8.5-10.1); Estimated GFR 38.67 (mL/min/1.73m2); Glucose 178 mg/dL (74-106); PHOSPHORUS 3.9 mg/dL (2.6-4.7); Total Protein 7.2 g/dL (6.4-8.2); Uric Acid 6.8 mg/dL (3.5-7.2)
[2020-04-08 10:28] LABS: ALT 30 U/L (16-63); AST 19 U/L (15-37); Anion Gap 7.2 mmol/L (3-11); CO2 25.8 mmol/L (21.0-32.0); Chloride 104 mmol/L (98-107); Magnesium 1.4 mg/dL (1.8-2.4); Sodium 137 mmol/L (136-145)
[2020-04-08 10:44] LABS: PROTEIN 26.4 mg/dL
[2020-04-08 10:47] LABS: COMMENT (LAB VIEW ONLY) 157.55 mg/dL; Prot/Crea Ur Ratio 0.16
[2020-05-05 15:07] LABS: Tacrolimus 11.8 ng/ml (See Note)
== END 2020-04-08 03:00 ==
PROVIDERS: PCP Family Medicine; Visit Provider Internal Medicine Nephrology
DX: Z79.899 Other long term (current) drug therapy (principal)
CPT/HCPCS: 36415; 80053; 85027; 80197; 81003; 82465; 82565; 83735; 84100; 84156; 84550

== ENCOUNTER 2020-05-14 03:42 | Outpatient (CLI) | payer MEDICARE, OTHER, SELFPAY ==
[2020-05-14 08:34] LABS: HCT 39.7 % (40.0-50.0); HGB 12.8 g/dL (13.5-17.5); MCH 30.7 pg (27.0-33.0); MCHC 32.2 % (32.0-36.0); MCV 95.2 fL (80-95); Platelet Count 216 10^3/uL (130-400); RBC 4.17 10^6/uL (4.36-5.78); RDW 13.8 % (11.8-14.1); RDW-SD 48.6 fL; WBC 7.86 10^3/uL (4.4-10.8)
[2020-05-14 08:39] LABS: Bilirubin Negative (Negative); Blood Negative (Negative); Clarity Clear (Clear); Glucose Negative (Negative); Ketones Negative (Negative); Leukocyte Esterase Negative (Negative); Nitrite Negative (Negative); Specific Gravity 1.025 (1.005-1.025); Urobilinogen 0.2 EU/dL (Up TO 0.2)
[2020-05-14 09:39] LABS: Cholesterol 168 mg/dL (<200)
[2020-05-14 09:41] LABS: COMMENT (LAB VIEW ONLY) 153.12 mg/dL; Prot/Crea Ur Ratio 0.21
[2020-05-14 09:50] LABS: ALT 34 U/L (16-63); AST 21 U/L (15-37); Alkaline Phosphatase 80 U/L (46-116); Anion Gap 8.4 mmol/L (3-11); BUN 51 mg/dL (7-18); Bilirubin, Total 0.5 mg/dL (0.2-1.0); CO2 25.6 mmol/L (21.0-32.0); CREATININE 1.88 mg/dL (0.70-1.30); Calcium 8.9 mg/dL (8.5-10.1); Chloride 102 mmol/L (98-107); Estimated GFR 37.72 (mL/min/1.73m2); Glucose 88 mg/dL (74-106); Magnesium 1.5 mg/dL (1.8-2.4); PHOSPHORUS 3.6 mg/dL (2.6-4.7); Potassium 4.5 mmol/L (3.5-5.1); Sodium 136 mmol/L (136-145); Total Protein 7.3 g/dL (6.4-8.2); Uric Acid 6.3 mg/dL (3.5-7.2)
== END 2020-05-14 04:02 ==
PROVIDERS: PCP Family Medicine; Visit Provider Internal Medicine Nephrology
DX: Z94.0 Kidney transplant status (principal); Z51.81 Encounter for therapeutic drug level monitoring; Z79.899 Other long term (current) drug therapy
CPT/HCPCS: 36415; 80053; 80197; 85027; 81003; 82465; 82565; 83735; 84100; 84144; 84156; 84550

== ENCOUNTER 2020-08-29 03:19 | Outpatient (CLI) | payer MEDICARE, OTHER, SELFPAY ==
[2020-08-29 08:35] LABS: Bilirubin Negative (Negative); Blood Negative (Negative); Clarity Clear (Clear); Glucose Negative (Negative); Ketones Negative (Negative); Leukocyte Esterase Negative (Negative); Nitrite Negative (Negative); Specific Gravity 1.025 (1.005-1.025); Urobilinogen 0.2 EU/dL (Up TO 0.2)
[2020-08-29 08:35] LABS: HCT 42.3 % (40.0-50.0); HGB 13.9 g/dL (13.5-17.5); MCH 30.5 pg (27.0-33.0); MCHC 32.9 % (32.0-36.0); MCV 92.8 fL (80-95); MPV 10.4 fL (8.0-11.0); Platelet Count 214 10^3/uL (130-400); RBC 4.56 10^6/uL (4.36-5.78); RDW 14.6 % (11.8-14.1); RDW-SD 49.9 fL; WBC 5.99 10^3/uL (4.4-10.8)
[2020-08-29 09:38] LABS: PROTEIN 27.2 mg/dL
[2020-08-29 09:40] LABS: COMMENT (LAB VIEW ONLY) 120.75 mg/dL; Prot/Crea Ur Ratio 0.22
[2020-08-29 09:42] LABS: Cholesterol 179 mg/dL (<200)
[2020-08-29 09:46] LABS: ALT 48 U/L (16-63); AST 26 U/L (15-37); Alkaline Phosphatase 83 U/L (46-116); Anion Gap 10.1 mmol/L (3-11); BUN 49 mg/dL (7-18); Bilirubin, Total 0.5 mg/dL (0.2-1.0); CO2 25.9 mmol/L (21.0-32.0); CREATININE 1.9 mg/dL (0.70-1.30); Calcium 8.7 mg/dL (8.5-10.1); Chloride 104 mmol/L (98-107); Estimated GFR 37.27 (mL/min/1.73m2); Glucose 114 mg/dL (74-106); Magnesium 1.7 mg/dL (1.8-2.4); Potassium 4.5 mmol/L (3.5-5.1); Sodium 140 mmol/L (136-145); Total Protein 7.9 g/dL (6.4-8.2)
[2020-08-29 10:32] LABS: PHOSPHORUS 3.7 mg/dL (2.6-4.7); Uric Acid 7.4 mg/dL (3.5-7.2)
[2020-08-30 12:29] LABS: Tacrolimus 8.2 ng/mL (See Note)
== END 2020-08-29 03:20 | disposition home or self-care (01) ==
LOC: LBO 03:19
PROVIDERS: Podiatrist Foot & Ankle Surgery; PCP Family Medicine; Visit Provider Internal Medicine Nephrology
DX: E55.9 Vitamin D deficiency, unspecified (principal); Z94.0 Kidney transplant status; Z79.899 Other long term (current) drug therapy; Z29.8 Encounter for other specified prophylactic measures
CPT/HCPCS: 36415; 80053; 82306; 85027; 80197; 81003; 82465; 82565; 83735; 84100; 84156; 84550

== ENCOUNTER 2020-10-03 01:54 | Outpatient (CLI) | payer MEDICARE, OTHER, SELFPAY ==
[2020-10-03 07:50] LABS: HCT 41.2 % (40.0-50.0); HGB 13.6 g/dL (13.5-17.5); MCH 30.6 pg (27.0-33.0); MCV 92.8 fL (80-95); MPV 10.1 fL (8.0-11.0); Platelet Count 194 10^3/uL (130-400); RBC 4.44 10^6/uL (4.36-5.78); RDW 14.5 % (11.8-14.1); RDW-SD 49.4 fL; WBC 5.38 10^3/uL (4.4-10.8)
[2020-10-03 07:51] LABS: Bilirubin Negative (Negative); Blood Negative (Negative); Clarity Clear (Clear); Glucose Negative (Negative); Ketones Negative (Negative); Leukocyte Esterase Negative (Negative); Nitrite Negative (Negative); Urobilinogen 0.2 EU/dL (Up TO 0.2)
[2020-10-03 08:18] LABS: PROTEIN 16.4 mg/dL
[2020-10-03 08:19] LABS: COMMENT (LAB VIEW ONLY) 66.91 mg/dL; Prot/Crea Ur Ratio 0.24
[2020-10-03 08:45] LABS: Cholesterol 171 mg/dL (<200)
[2020-10-03 08:51] LABS: ALT 40 U/L (16-63); AST 20 U/L (15-37); Albumin 3.8 g/dL (3.4-5.0); Alkaline Phosphatase 78 U/L (46-116); Anion Gap 8.9 mmol/L (3-11); BUN 48 mg/dL (7-18); Bilirubin, Total 0.5 mg/dL (0.2-1.0); CO2 26.1 mmol/L (21.0-32.0); CREATININE 1.8 mg/dL (0.70-1.30); Calcium 8.6 mg/dL (8.5-10.1); Chloride 104 mmol/L (98-107); Estimated GFR 39.67 (mL/min/1.73m2); Glucose 134 mg/dL (74-106); Magnesium 1.6 mg/dL (1.8-2.4); PHOSPHORUS 3.5 mg/dL (2.6-4.7); Potassium 4.7 mmol/L (3.5-5.1); Sodium 139 mmol/L (136-145); Total Protein 7.2 g/dL (6.4-8.2); Uric Acid 6.2 mg/dL (3.5-7.2)
[2020-10-04 12:26] LABS: Tacrolimus 8.2 ng/mL (See Note)
== END 2020-10-03 01:55 | disposition home or self-care (01) ==
LOC: LBO 01:54
PROVIDERS: PCP Family Medicine; Visit Provider Internal Medicine Nephrology
DX: Z94.0 Kidney transplant status (principal); Z79.899 Other long term (current) drug therapy; Z29.8 Encounter for other specified prophylactic measures
CPT/HCPCS: 36415; 80053; 85027; 80197; 81003; 82465; 82565; 83735; 84100; 84156; 84550

== ENCOUNTER 2020-11-14 01:56 | Outpatient (CLI) | payer MEDICARE, OTHER, SELFPAY ==
[2020-11-14 07:44] LABS: HCT 34.9 % (40.0-50.0); HGB 11.4 g/dL (13.5-17.5); MCH 30.1 pg (27.0-33.0); MCHC 32.7 % (32.0-36.0); MCV 92.1 fL (80-95); MPV 9.4 fL (8.0-11.0); Platelet Count 207 10^3/uL (130-400); RBC 3.79 10^6/uL (4.36-5.78); RDW 14.7 % (11.8-14.1); RDW-SD 49.7 fL; WBC 6.22 10^3/uL (4.4-10.8)
[2020-11-14 08:09] LABS: Bilirubin Negative (Negative); Blood Trace-lysed (Negative); Clarity Clear (Clear); Glucose Negative (Negative); Ketones Negative (Negative); Leukocyte Esterase Trace (Negative); Nitrite Negative (Negative); Specific Gravity 1.015 (1.005-1.025); Urobilinogen 0.2 EU/dL (Up TO 0.2)
[2020-11-14 08:19] LABS: Epithelial Cells Negative HPF (Negative); WBC 20-50 HPF (0-5)
[2020-11-14 08:20] LABS: Bacteria Few HPF (Negative); C & S Indicated? Yes; Casts Negative LPF (Negative); Crystals Negative HPF (Negative); Mucus Negative (Negative); Other Cells Rare Renal (Negative)
[2020-11-14 08:34] LABS: PROTEIN 12.7 mg/dL
[2020-11-14 08:39] LABS: Cholesterol 169 mg/dL (<200)
[2020-11-14 08:44] LABS: COMMENT (LAB VIEW ONLY) 44.48 mg/dL; Prot/Crea Ur Ratio 0.28
[2020-11-14 08:57] LABS: ALT 21 U/L (16-63); AST 15 U/L (15-37); Albumin 3.3 g/dL (3.4-5.0); Alkaline Phosphatase 79 U/L (46-116); Anion Gap 10.6 mmol/L (3-11); BUN 44 mg/dL (7-18); Bilirubin, Total 0.5 mg/dL (0.2-1.0); CO2 24.4 mmol/L (21.0-32.0); CREATININE 2.8 mg/dL (0.70-1.30); Calcium 8.4 mg/dL (8.5-10.1); Chloride 105 mmol/L (98-107); Estimated GFR 23.73 (mL/min/1.73m2); Glucose 129 mg/dL (74-106); Magnesium 1.8 mg/dL (1.8-2.4); PHOSPHORUS 3.6 mg/dL (2.6-4.7); Potassium 4.6 mmol/L (3.5-5.1); Sodium 140 mmol/L (136-145); Uric Acid 6.5 mg/dL (3.5-7.2)
[2020-11-15 12:05] LABS: Tacrolimus 6.1 ng/mL (See Note)
== END 2020-11-14 01:57 | disposition home or self-care (01) ==
LOC: LBO 01:56
PROVIDERS: PCP Nurse Practitioner Family; Visit Provider Internal Medicine Nephrology
DX: Z94.0 Kidney transplant status (principal); Z79.899 Other long term (current) drug therapy; Z29.8 Encounter for other specified prophylactic measures
CPT/HCPCS: 36415; 80053; 85027; 80197; 81003; 81015; 82465; 82565; 83735; 84100; 84156; 84550; 87086

== ENCOUNTER 2020-11-18 04:04 | Outpatient (CLI) | payer MEDICARE, OTHER, SELFPAY ==
[2020-11-18 08:28] LABS: Abs Immature Grans 0.08 10^3/uL (0.0-0.06); Absolute Basophil Count 0.04 10^3/uL (0.0-0.2); Absolute Eosinophil Count 0.23 10^3/uL (0.0-0.7); Absolute Lymphocyte Count 0.58 10^3/uL (1.2-3.4); Absolute Monocyte Count 0.57 10^3/uL (0.1-0.8); Absolute Neutrophil Count 6.31 10^3/uL (1.2-6.7); Basophils % 0.5; Eosinophils % 2.9; HCT 36.2 % (40.0-50.0); HGB 11.9 g/dL (13.5-17.5); Lymphocytes % 7.4; MCH 30.4 pg (27.0-33.0); MCHC 32.9 % (32.0-36.0); MCV 92.3 fL (80-95); MPV 9.1 fL (8.0-11.0); Monocytes % 7.3; Neutrophils % 80.9; Nucleated RBC 0 %; Platelet Count 226 10^3/uL (130-400); RBC 3.92 10^6/uL (4.36-5.78); RDW 14.9 % (11.8-14.1); RDW-SD 50.3 fL; WBC 7.81 10^3/uL (4.4-10.8)
[2020-11-18 08:29] LABS: Bilirubin Negative (Negative); Blood Small (Negative); Clarity Clear (Clear); Glucose Negative (Negative); Ketones Negative (Negative); Leukocyte Esterase Negative (Negative); Nitrite Negative (Negative); Urobilinogen 0.2 EU/dL (Up TO 0.2); pH 6.5 (5-8)
[2020-11-18 08:40] LABS: ALT 19 U/L (16-63); AST 12 U/L (15-37); Albumin 3.2 g/dL (3.4-5.0); Alkaline Phosphatase 75 U/L (46-116); Anion Gap 9.3 mmol/L (3-11); BUN 46 mg/dL (7-18); Bilirubin, Total 0.4 mg/dL (0.2-1.0); CO2 24.7 mmol/L (21.0-32.0); CREATININE 2.7 mg/dL (0.70-1.30); Calcium 8.8 mg/dL (8.5-10.1); Chloride 105 mmol/L (98-107); Estimated GFR 24.75 (mL/min/1.73m2); Glucose 76 mg/dL (74-106); Potassium 4.4 mmol/L (3.5-5.1); Sodium 139 mmol/L (136-145); Total Protein 7.7 g/dL (6.4-8.2)
[2020-11-18 08:41] LABS: Epithelial Cells Rare HPF (Negative)
[2020-11-18 08:42] LABS: Bacteria Negative HPF (Negative); C & S Indicated? Yes; Casts Negative LPF (Negative); Crystals Negative HPF (Negative); Mucus Negative (Negative)
== END 2020-11-18 04:05 | disposition home or self-care (01) ==
LOC: LBO 04:04
PROVIDERS: PCP Nurse Practitioner Family; Visit Provider Internal Medicine Nephrology
DX: Z94.0 Kidney transplant status (principal)
CPT/HCPCS: 36415; 80053; 81003; 81015; 85025; 87086

== ENCOUNTER 2020-12-09 03:18 | Outpatient (CLI) | payer MEDICARE, OTHER, SELFPAY ==
[2020-12-09 08:25] LABS: HCT 39.8 % (40.0-50.0); HGB 12.6 g/dL (13.5-17.5); MCH 30.1 pg (27.0-33.0); MCHC 31.7 % (32.0-36.0); MCV 95.2 fL (80-95); MPV 10.5 fL (8.0-11.0); Platelet Count 190 10^3/uL (130-400); RBC 4.18 10^6/uL (4.36-5.78)
[2020-12-09 08:44] LABS: Bilirubin Negative (Negative); Blood Negative (Negative); Clarity Clear (Clear); Glucose Negative (Negative); Ketones Negative (Negative); Leukocyte Esterase Negative (Negative); Nitrite Negative (Negative); Specific Gravity 1.025 (1.005-1.025); Urobilinogen 0.2 EU/dL (Up TO 0.2)
[2020-12-09 09:02] LABS: PROTEIN 18.6 mg/dL
[2020-12-09 09:05] LABS: Cholesterol 150 mg/dL (<200)
[2020-12-09 09:05] LABS: COMMENT (LAB VIEW ONLY) 65.89 mg/dL; Prot/Crea Ur Ratio 0.28
[2020-12-09 09:07] LABS: ALT 35 U/L (16-63); AST 15 U/L (15-37); Albumin 3.5 g/dL (3.4-5.0); Alkaline Phosphatase 54 U/L (46-116); Anion Gap 8.2 mmol/L (3-11); BUN 64 mg/dL (7-18); Bilirubin, Total 0.6 mg/dL (0.2-1.0); CO2 27.8 mmol/L (21.0-32.0); CREATININE 2.3 mg/dL (0.70-1.30); Calcium 8.7 mg/dL (8.5-10.1); Chloride 108 mmol/L (98-107); Estimated GFR 29.78 (mL/min/1.73m2); Glucose 83 mg/dL (74-106); Magnesium 2.3 mg/dL (1.8-2.4); PHOSPHORUS 3.1 mg/dL (2.6-4.7); Potassium 4.2 mmol/L (3.5-5.1); Sodium 144 mmol/L (136-145); Total Protein 6.6 g/dL (6.4-8.2); Uric Acid 6.4 mg/dL (3.5-7.2)
[2020-12-10 14:31] LABS: Tacrolimus 5.4 ng/mL (See Note)
== END 2020-12-09 03:19 | disposition home or self-care (01) ==
LOC: LBO 03:18
PROVIDERS: PCP Nurse Practitioner Family; Visit Provider Internal Medicine Nephrology
DX: Z94.0 Kidney transplant status (principal); Z79.899 Other long term (current) drug therapy
CPT/HCPCS: 36415; 80053; 85027; 80197; 81003; 82465; 82565; 83735; 84100; 84156; 84550

== ENCOUNTER 2021-01-06 03:32 | Outpatient (CLI) | payer MEDICARE, OTHER, SELFPAY ==
[2021-01-06 08:14] LABS: HCT 41.9 % (40.0-50.0); HGB 13.2 g/dL (13.5-17.5); MCH 30.4 pg (27.0-33.0); MCHC 31.5 % (32.0-36.0); MCV 96.5 fL (80-95); MPV 9.1 fL (8.0-11.0); Platelet Count 144 10^3/uL (130-400); RBC 4.34 10^6/uL (4.36-5.78); RDW 16.5 % (11.8-14.1); RDW-SD 59.6 fL; WBC 7.66 10^3/uL (4.4-10.8)
[2021-01-06 08:15] LABS: Bilirubin Negative (Negative); Blood Negative (Negative); Clarity Sl Cloudy (Clear); Glucose Negative (Negative); Ketones Negative (Negative); Leukocyte Esterase Negative (Negative); Nitrite Negative (Negative); Specific Gravity 1.015 (1.005-1.025); Urobilinogen 0.2 EU/dL (Up TO 0.2)
[2021-01-06 09:10] LABS: PROTEIN 12.2 mg/dL
[2021-01-06 09:12] LABS: ALT 39 U/L (16-63); AST 16 U/L (15-37); Albumin 3.4 g/dL (3.4-5.0); Alkaline Phosphatase 51 U/L (46-116); Anion Gap 8.7 mmol/L (3-11); BUN 51 mg/dL (7-18); Bilirubin, Total 0.5 mg/dL (0.2-1.0); CO2 29.3 mmol/L (21.0-32.0); COMMENT (LAB VIEW ONLY) 47.33 mg/dL; CREATININE 2.2 mg/dL (0.70-1.30); Calcium 8.5 mg/dL (8.5-10.1); Chloride 105 mmol/L (98-107); Estimated GFR 31.35 (mL/min/1.73m2); Glucose 142 mg/dL (74-106); Magnesium 2.2 mg/dL (1.8-2.4); PHOSPHORUS 3.2 mg/dL (2.6-4.7); Potassium 4.2 mmol/L (3.5-5.1); Prot/Crea Ur Ratio 0.25; Sodium 143 mmol/L (136-145); Total Protein 6.3 g/dL (6.4-8.2); Uric Acid 5.2 mg/dL (3.5-7.2)
[2021-01-06 09:31] LABS: Cholesterol 167 mg/dL (<200)
[2021-01-07 13:26] LABS: Tacrolimus 4.8 ng/mL (See Note)
== END 2021-01-06 03:33 | disposition home or self-care (01) ==
PROVIDERS: PCP Nurse Practitioner Family; Visit Provider Internal Medicine Nephrology
DX: Z94.0 Kidney transplant status (principal); Z79.899 Other long term (current) drug therapy
CPT/HCPCS: 36415; 80053; 85027; 80197; 81003; 82465; 82565; 83735; 84100; 84156; 84550

== ENCOUNTER 2021-03-03 01:29 | Outpatient (CLI) | payer MEDICARE, OTHER, SELFPAY ==
--- OUTSIDE RECORDS SUMMARY | 2021-03-03 01:31 | XMS_ITS | Encounter Summary ---
:1965 Author Care Team Providers Name Role Phone Adalberto Ly MD Primary Care Provider [phone] [facility] OTHER [phone] Reason for Visit None recorded. Assessment and Plan 1. Primary central sleep apnea Central sleep apnea with pre-C PAP AHI 86.4/hr (>50% events centrals). He uses ASV /18/16/7/0 with 14 bpm. He has excellent compliance and reduction in AHI. He cannot sleep without it and feels much more rested since using ASV. Continued use is recommended and medically necessary. He is encouraged to keep up with the rou becky maintenance of the machine and to clean and replace parts as indicated. He was made aware of the recall and advi sed to register his machine with [employer]. I explained the exact risks of continuing to use the machine are unknown at this time and the decision to continue is up to him. He is reminded there are potent ial risks of not using CPAP as well. I will see him back in two years. He is asked to call the clinic for any sleep related questions or concerns. I provided greater than 30 minutes in e care of this patient, more than half the time was spent in [id number] counseling. Discussion Note: None recorded.Patient educational handouts: No information available. Plan of Care Reminders Provider Appointments Return to on or around Franky Gordon, Office 02/02/2023 [employer] Lab None ? ? recorded. Referral None ? ? recorded. Procedures None ? ? recorded. Surgeries None ? ? recorded. Imaging None ? ? recorded. Medications Name Start Date ? ? allopurinol 100 mg tablet ? amoxicillin 500 mg capsule ? amoxicillin 500 mg-potassium clavulanate 125 mg tablet ? atorvastatin 20 mg tablet ? TAKE 1 TABLET BY MOUTH ONCE DAILY BD Insulin Syringe Ultra-Fine 0.3 mL 31 gauge x 10/26 ? USE 1 SYRINGE DAILY BD Ultra-Fine Mini Pen Needle 31 gauge x / ? USE TWO TIMES A DAY calcitriol 0.25 mcg capsule ? calcitriol 0.5 mcg capsule ? Take 2 capsules every day by oral route for 90 days. cephalexin 500 mg capsule ? diltiazem ER 120 mg capsule,extended release 12 hr ? doxycycline hyclate 100 mg capsule ? doxycycline hyclate 100 mg tablet ? Envarsus XR 1 mg tablet,extended release ? Epogen ? given at dialysis FreeStyle Lite Strips ? TEST FIVE TIMES DAILY gabapentin 100 mg capsule ? TAKE 3 CAPSULES BY MOUTH AT BEDTIME FOR PAIN Humulin N NPH U-100 Insulin (isophane susp) 100 unit/m L subcutaneous ? INJECT 5 40 UNITS SUBCUTANEOUSLY DAILY insulin lispro (U-100) 100 unit/mL subcutaneous pen ? INJECT 35 UNITS UNDER THE SKIN THREE TIMES A DAY Levemir FlexTouch U-100 Insulin 100 unit/mL (3 mL) sub cutaneous pen ? INJECT 45 UNITS UNDER THE SKIN EVERY MO RNING AND INJECT 45 UNITS UNDER THE SKIN EVERY EVENING Mircera ? one injection every 2 weeks during dialysis omeprazole 20 mg capsule,delayed release ? Take 1 capsule every day by oral route for 90 days. pantoprazole 40 mg tablet,delayed release ? prednisone 10 mg tablet ? TAKE 8 TABLETS BY MOUTH ONCE DAILY FOR 30 DAYS THEN 6 TABLETS DAILY FOR 7 DAYS THEN 4 TABLETS DAILY FOR 7 DAYS THEN 2 TABLETS DAILY FOR 7 Renagel 400 mg tablet ? Take 2 tablets 3 times a day by oral route. SSD 1 % topical cream ? sulfamethoxazole 400 mg-trimethoprim 80 mg tablet ? tamsulosin 0.4 mg capsule ? tolterodine ER 2 mg capsule,extended release 24 hr ? valganciclovir 450 mg tablet ? Medications Administered None recorded. Vitals Height Weight BMI Blood Pressure 5 ft 10 in 280 lbs 40.2 kg/m2 131/58 mm[Hg] Results Lab Results None recorded. Allergies Code Code System Name Reaction Severity Onset 99532 RxNorm Simvastatin ? ? ? Problems Name Status Onset Date Source ? Hyperlipidemia Active 01/16/2019 ? Obesity Active 01/16/2019 ? Hypertensive Disorder Active 01/16/2019 ? Fibromyalgia Active 01/16/2019 ? Type 2 Diabetes Mellitus without Active ? History Complication Primary Central Sleep Apnea Active ? Hist ory Periodic Limb Movement Disorder Active ? History Kidney Disease Active ? History Procedures None recorded. Vaccine List None recorded. Social History Tobacco Smoking Status Former Smoker (1 pack per a Notes: started smoking at day) age 19. quit 1992 What is your level of alcohol Notes: may have a beer or consumption? 2 per year Live alone or with others? with others Notes: wif e, 3 daughters Are you currently employed? N Do you have any pets? N Are you blind or do you have N Notes: r eading glasses difficulty seeing? Are you deaf or do you have N serious difficulty hearing? Hard of hearing or deaf in one N or both ears? What is your level of caffeine Notes: Soda; 1 cup/month consumption? What is your occupation? disabled Functional Status No Impairment. Past Encounters 02/02/2021 Primary Central Sleep Apnea Sara Gordon, BAG MAKING MACHINE TENDER: [address] [facility], [place] [address], Ph. History of Present Illness Note: <p> Cl Alba comes in for [facility] sleep apnea follow-up.</p><p>
</p><p>Cl was last seen by me on 01/17/19. Cl has an extensive medical history to include diabetes, diabetic retinopathy, hypertension, peripheral edema, obesity, chronic kidney disease and kidney cancer status post bilateral nephrectomy on dialysis three times weekly. He had split night study 02/13/2011 with a pre CPAP AHI of 94.5 per hour, REM AHI 120 per hour, SpO2 janine 74%. CPAP 9-12 cm was recommended based on that study. Periodic limb movement index 12.7 per hour, and PLM arousal index 5.2 per hour. He was treated with CPAP for a period of time with persistent symptoms. Hehad a repeat split night study December 15, 2013 with a pre-CPAP AHI of 86.4 per hour, SpO2 janine of 72%,greater than 50% of the events were central in nature, no optimal pressure was identified. He then had a BiPAP ST/ASV titration study 01/26/14. BiPAP ST was not effective. ASV at 25/16/16/9/0 breathing rate of 14 breaths per minute was successful including in left lateral REM Sleep. PLM index was 44.8 per hour, and PLM arousal index 2.7 per hour. At his last visit he was using ASV 25/16/7/0 cm 14 breaths per minute with excellent compliance and reduction in AHI to 5.4/hr. He was down 70 lbs after a gastric bypass but no pressure change.</p><p>
</p><p>Cl tells me he is using his ASV religiously. He goes to bed between 7:30-8:30 pm, he falls asleep easily most nights but if his mind active it takes a while. He wakes up 1-2/night to urinate, he often can getto sleep but again if his mind is busy he has trouble. He gets up at 3 am to start his day. He feelshe averages 4-6 hours of sleep a night. He is not napping. He is not snoring with ASV. He is not waking choking or gasping as long as he is using his ASV. He denies any morning headaches or unexplainednight sweats. He replaces supplies PRN, he uses a FFM and tolerates this well. He finds the pressures comfortable. </p><p>
</p><p>Cl says he had a kidney transplant on 01/30/19 and he feels better than I have in years.</p><p>
</p><p>ESS today 11/03</p><p>
</p><p>COMPLIANCE DATA (reviewed with Cl today): 01/04/21-02/02/21, used 30/30 nights, ave use 7 hrs 21 minutes, AHI 1.1/hr, leak 47.5 minutes. </p>Review of Systems: ROS as noted in the HPI Review of Systems None recorded. Physical Exam ? Notes: <p>General: A&O, well groome d </p>{{over weight obese * morbidly obese normal weight thin}}.
H EAD: normocephalic & atraumatic.
EYES: non icteric.
LUNGS: CTA all f ields. Good air movement.
CARDIO: RRR without murmur, gallop or thrill.
NEURO: A&O. Normal gait.
PSYCH: Normal mood and affect.
CUTANEOUS: no overt lesions or rashes<p></p>
--- OUTSIDE RECORDS SUMMARY | 2021-03-03 01:31 | XMS_ITS ---
:1965 Author Care Team Providers Name Role Phone ROWDY BAJWA MD Primary Care Provider [phone] [facility] OTHER [phone] Allergies Code Code System Name Reaction Severity Status Onset 00615 RxNorm Simvastatin ? ? Active ? Medications Name Status Start Date Stop Date ? ? allopurinol 100 mg tablet Active ? Not av ailable amoxicillin 500 mg capsule Active ? Not a vailable amoxicillin 500 mg-potassium Active ? Not available clavulanate 125 mg tablet atorvastatin 20 mg tablet Active ? Not av ailable TAKE 1 TABLET BY MOUTH ONCE DAILY BD Insulin Syringe Ultra-Fine 0.3 mL 31 gauge x 5/16 Active ? Not available USE 1 SYRINGE DAILY BD Ultra-Fine Mini Pen Needle 31 gauge x 3/16 Active ? Not available USE TWO TIMES A DAY calcitriol 0.25 mcg capsule Active ? Not available calcitriol 0.5 mcg capsule Active ? Not a vailable cephalexin 500 mg capsule Active ? Not av ailable diltiazem ER 120 mg capsule,extended Active ? Not available release 12 hr doxycycline hyclate 100 mg capsule Active ? Not available doxycycline hyclate 100 mg tablet Active ? Not available Envarsus XR 1 mg tablet,extended Active ? Not available release Epogen Active ? Not available given at dialysis FreeStyle Lite Strips Active ? Not availa ble TEST FIVE TIMES DAILY gabapentin 100 mg capsule Active ? Not av ailable TAKE 3 CAPSULES BY MOUTH AT BEDTIME FOR PAIN gabapentin 300 mg capsule Completed ? 2018 Take 1 capsule 3 times a day by oral route. Humulin N NPH U-100 Insulin (isophane susp) 100 unit/mL subcutan eous Active ? Not available INJECT 5 40 UNITS SUBCUTANEOUSLY DAILY insulin aspart U-100 100 unit/mL subcutaneous solution Complete d ? 01/17/2019 Inject 30 units 4 times a day by subcutaneous route. insulin glargine (U-100) 100 unit/mL subcutaneous solution Compl eted ? 01/17/2019 Inject 50 units every day by subcutaneous route. insulin lispro (U-100) 100 unit/mL subcutaneous pen Active ? Not available INJECT 35 UNITS UNDER THE SKIN THREE TIMES A DAY Levemir FlexTouch U-100 Insulin 100 unit/mL (3 mL) subcutaneous pen Active ? Not available INJECT 45 UNITS UNDER THE SKIN EVERY MO RNING AND INJECT 45 UNITS UNDER THE SKIN EVERY EVENING lisinopril 40 mg tablet Completed ? 01/18/20 19 Take 1 tablet every day by oral route. metoprolol tartrate 50 mg tablet Completed ? 01/17/2019 Take 1 tablet twice a day by oral route. Mircera Active ? Not available one injection every 2 weeks during dialysis omeprazole 20 mg capsule,delayed release Active ? Not available Take 1 capsule every day by oral route for 90 days. pantoprazole 40 mg tablet,delayed Active ? Not available release prednisone 10 mg tablet Active ? Not avai lable TAKE 8 TABLETS BY MOUTH ONCE DAILY FOR 30 DAYS THEN 6 TABLETS DAILY FOR 7 DAYS THEN 4 TABLETS DAILY FOR 7 DAYS THEN 2 TABLETS DAILY FOR 7 Renagel 400 mg tablet Active ? Not availa ble Take 2 tablets 3 times a day by oral route. sevelamer carbonate 800 mg tablet Completed ? 01/17/2019 SSD 1 % topical cream Active ? Not availa ble sulfamethoxazole 400 mg-trimethoprim 80 Active ? Not available mg tablet tamsulosin 0.4 mg capsule Active ? Not av ailable tolterodine ER 2 mg capsule,extended Active ? Not available release 24 hr valganciclovir 450 mg tablet Active ? Not available Problems Name Status Onset Date Source ? Hyperlipidemia Active 01/16/2019 ? Obesity Active 01/16/2019 ? Hypertensive Disorder Active 01/16/2019 ? Fibromyalgia Active 01/16/2019 ? Type 2 Diabetes Mellitus without Active ? History Complication Primary Central Sleep Apnea Active ? Hist ory Periodic Limb Movement Disorder Active ? History Kidney Disease Active ? History Procedures None recorded. Results Lab Results None recorded. Past Encounters 02/02/2021 Primary Central Sleep Apnea Sara Gordon NP: [address] [facility], [place] [address], Ph. Social History Tobacco Smoking Status Former Smoker (1 pack per a Notes: started smoking at day) age 19. quit 1992 Vaccine List None recorded. Plan of Care Reminders Provider Appointments None ? ? recorded. Lab None ? ? recorded. Referral None ? ? recorded. Procedures None ? ? recorded. Surgeries None ? ? recorded. Imaging None ? ? recorded. Vitals 02/02/2021 03:00PM Office 30 Height Weight BMI Blood Pressure 177.8 cm 127.01 kg 40.2 kg/m2 131/58 mm[Hg] 01/17/2019 03:30PM Office 30 Height Weight BMI Blood Pressure 177.8 cm 114.76 kg 36.3 kg/m2 98/58 mm[Hg] 08/29/2017 Weight Blood Pressure 140.61 kg 160/80 mm[Hg] 08/29/2017 Height 182.88 cm 11/21/2014 Weight Blood Pressure 142.12 kg 118/56 mm[Hg] 11/21/2014 Height 177.8 cm 05/23/2014 Height 177.8 cm 05/23/2014 Weight Blood Pressure 143.02 kg 142/70 mm[Hg] 02/14/2014 Height 177.8 cm 02/14/2014 Weight Blood Pressure 140.87 kg 150/74 mm[Hg] 01/24/2014 Height 177.8 cm 01/24/2014 Weight Blood Pressure 141.61 kg 158/82 mm[Hg] 12/06/2013 Weight Blood Pressure 141.09 kg 142/66 mm[Hg] 12/06/2013 Height 177.8 cm
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
--- OUTSIDE RECORDS SUMMARY | 2021-03-03 01:31 | XMS_ITS ---
:1965 Author Organization [facility], NA DOCUMENT DISCLAIMER The information in the [facility] Continuity of Care Document represents a summary of certain health and medical information. It may not contain the complete medical history for the patient and should be independently verified. The represented time in the document is Eastern Time. PROBLEMS No Known Problems ALLERGIES AND ADVERSE REACTIONS No Known Allergies SOCIAL HISTORY General Item Value Smoking Status Unknown if ever smoked Caregiver Characteristics No Information Available Characteristics of Home environment No Information Available MEDICATIONS Home Medications Medication Instructions Dosage Route Start Date End Statu s Date Unknown FreeStyle Lite Strips March Take by mouth at ORAL gabapentin 100 bedtime 3 mg capsule March Inject Humalog subcutaneously SUBCUTANEOUS May KwikPen three times a day 2018 Ac tive Insulin 200 as directed unit/mL (3 mL) Inject Novolog subcutaneously as SUBCUTANEOUS Flexpen U-100 directed with March Ac tive Insulin 100 meals 2017 unit/mL (3 mL) Take by mouth ORAL Prilosec OTC once a day as 1 20 mg directed tablet March Take by mouth ORAL Renal Caps 1 once a day as 1 mg directed capsule December 212017 Take by mouth ORAL Renvela 800 mg three times a day 2 with meals tablet November 272018 VITAL SIGNS Other Other Value Date / Time Height 178 cm October 01, 2011 12:00 AM HEALTH CONCERNS Tuberculosis Testing TST Date Administered TST Date Read TST Result 07/07/2016 07/09/2016 Neg (<5) IMMUNIZATIONS Vaccine Date Dose Route Status PREVNAR July 19, Intramuscular Comple windy 2018 0.5 mL [id number] July 25, Intramuscular C ompleted 2017 40.0 mcg PNEUMOVAX March 19, Intramuscular Compl eted 2014 0.5 mL TRANSPLANT WAITLIST STATUS No Information on Transplant Waitlist Status
[2021-03-03 08:38] LABS: HCT 36.4 % (40.0-50.0); HGB 11.9 g/dL (13.5-17.5); MCH 31.2 pg (27.0-33.0); MCHC 32.7 % (32.0-36.0); MCV 95.5 fL (80-95); Platelet Count 189 10^3/uL (130-400); RBC 3.81 10^6/uL (4.36-5.78); RDW 15.3 % (11.8-14.1); RDW-SD 52.9 fL; WBC 5.03 10^3/uL (4.4-10.8)
[2021-03-03 08:39] LABS: Bilirubin Negative (Negative); Blood Negative (Negative); Clarity Clear (Clear); Glucose Negative (Negative); Ketones Negative (Negative); Leukocyte Esterase Negative (Negative); Nitrite Negative (Negative); Specific Gravity 1.015 (1.005-1.025); Urobilinogen 0.2 EU/dL (Up TO 0.2)
[2021-03-03 09:31] LABS: PROTEIN 15.4 mg/dL
[2021-03-03 09:33] LABS: COMMENT (LAB VIEW ONLY) 39.53 mg/dL; Prot/Crea Ur Ratio 0.38
[2021-03-03 09:34] LABS: ALT 34 U/L (16-63); AST 19 U/L (15-37); Albumin 3.7 g/dL (3.4-5.0); Alkaline Phosphatase 60 U/L (46-116); Anion Gap 7.1 mmol/L (3-11); BUN 34 mg/dL (7-18); Bilirubin, Total 0.8 mg/dL (0.2-1.0); CO2 29.9 mmol/L (21.0-32.0); CREATININE 1.9 mg/dL (0.70-1.30); Calcium 8.8 mg/dL (8.5-10.1); Chloride 104 mmol/L (98-107); Cholesterol 176 mg/dL (<200); Estimated GFR 37.13 (mL/min/1.73m2); Glucose 155 mg/dL (74-106); Magnesium 1.6 mg/dL (1.8-2.4); Potassium 4.2 mmol/L (3.5-5.1); Sodium 141 mmol/L (136-145); Total Protein 6.9 g/dL (6.4-8.2); Uric Acid 6.6 mg/dL (3.5-7.2)
[2021-03-04 13:15] LABS: Tacrolimus (DHMC) 8.6 ng/ml
== END 2021-03-03 01:30 | disposition home or self-care (01) ==
LOC: LBO 01:29
PROVIDERS: PCP Nurse Practitioner Family; Visit Provider Internal Medicine Nephrology
DX: Z94.0 Kidney transplant status (principal); Z29.8 Encounter for other specified prophylactic measures; Z79.899 Other long term (current) drug therapy
CPT/HCPCS: 80053; 80197; 85027; 81003; 82465; 82565; 83735; 84100; 84156; 84550

== ENCOUNTER 2021-04-28 08:50 | Outpatient (CLI) | payer MEDICARE, OTHER, SELFPAY ==
[2021-04-28 09:33] LABS: HCT 40.2 % (40.0-50.0); HGB 13.5 g/dL (13.5-17.5); MCH 31.4 pg (27.0-33.0); MCHC 33.6 % (32.0-36.0); MCV 93.5 fL (80-95); MPV 10.4 fL (8.0-11.0); Platelet Count 198 10^3/uL (130-400); RDW 13.5 % (11.8-14.1); RDW-SD 45.9 fL
[2021-04-28 09:50] LABS: Bilirubin Negative (Negative); Blood Negative (Negative); Clarity Clear (Clear); Glucose Negative (Negative); Ketones Negative (Negative); Leukocyte Esterase Negative (Negative); Nitrite Negative (Negative); Specific Gravity >= 1.030 (1.005-1.025); Urobilinogen 0.2 EU/dL (Up TO 0.2); pH 6.5 (5-8)
[2021-04-28 09:52] LABS: ALT 50 U/L (16-63); AST 27 U/L (15-37); Albumin 3.9 g/dL (3.4-5.0); Alkaline Phosphatase 55 U/L (46-116); Anion Gap 10.8 mmol/L (3-11); BUN 37 mg/dL (7-18); Bilirubin, Total 0.5 mg/dL (0.2-1.0); CO2 26.2 mmol/L (21.0-32.0); CREATININE 1.9 mg/dL (0.70-1.30); Calcium 8.8 mg/dL (8.5-10.1); Chloride 104 mmol/L (98-107); Estimated GFR 37.13 (mL/min/1.73m2); Glucose 155 mg/dL (74-106); Magnesium 1.5 mg/dL (1.8-2.4); PHOSPHORUS 4.4 mg/dL (2.6-4.7); Potassium 4.2 mmol/L (3.5-5.1); Sodium 141 mmol/L (136-145); Total Protein 6.9 g/dL (6.4-8.2)
[2021-04-28 10:07] LABS: Cholesterol 162 mg/dL (<200)
[2021-04-28 10:27] LABS: PROTEIN 19.6 mg/dL
[2021-04-28 10:28] LABS: COMMENT (LAB VIEW ONLY) 97.74 mg/dL
[2021-04-29 13:08] LABS: Tacrolimus 8.1 ng/mL (See Note)
== END 2021-04-28 08:51 | disposition home or self-care (01) ==
LOC: LBO 08:50
PROVIDERS: PCP Nurse Practitioner Family; Visit Provider Internal Medicine Nephrology
DX: Z94.0 Kidney transplant status (principal); Z79.899 Other long term (current) drug therapy
CPT/HCPCS: 36415; 80053; 85027; 80197; 81003; 82465; 82565; 83735; 84100; 84156; 84550

== ENCOUNTER 2021-08-04 03:58 | Outpatient (CLI) | payer MEDICARE, BC, SELFPAY ==
[2021-08-04 10:05] LABS: HCT 40.3 % (40.0-50.0); HGB 13.4 g/dL (13.5-17.5); MCH 31.6 pg (27.0-33.0); MCHC 33.3 % (32.0-36.0); MPV 10.2 fL (8.0-11.0); Platelet Count 178 10^3/uL (130-400); RBC 4.24 10^6/uL (4.36-5.78); RDW 14.5 % (11.8-14.1); RDW-SD 50.7 fL; WBC 5.75 10^3/uL (4.4-10.8)
[2021-08-04 11:11] LABS: ALT 47 U/L (16-63); AST 26 U/L (15-37); Albumin 3.8 g/dL (3.4-5.0); Alkaline Phosphatase 61 U/L (46-116); Anion Gap 11.7 mmol/L (3-11); BUN 41 mg/dL (7-18); Bilirubin, Total 0.7 mg/dL (0.2-1.0); CO2 24.3 mmol/L (21.0-32.0); CREATININE 1.9 mg/dL (0.70-1.30); Chloride 104 mmol/L (98-107); Estimated GFR 37.13 (mL/min/1.73m2); Glucose 141 mg/dL (74-106); Magnesium 1.4 mg/dL (1.8-2.4); PHOSPHORUS 4.5 mg/dL (2.6-4.7); Potassium 4.5 mmol/L (3.5-5.1); Sodium 140 mmol/L (136-145); Total Protein 6.9 g/dL (6.4-8.2); Uric Acid 6.6 mg/dL (3.5-7.2)
[2021-08-04 11:20] LABS: Cholesterol 176 mg/dL (<200)
[2021-08-04 12:47] LABS: Bilirubin Negative (Negative); Blood Negative (Negative); Clarity Clear (Clear); Glucose Negative (Negative); Ketones Negative (Negative); Leukocyte Esterase Negative (Negative); Nitrite Negative (Negative); Urobilinogen 0.2 EU/dL (Up TO 0.2)
[2021-08-04 13:31] LABS: COMMENT (LAB VIEW ONLY) 64.61 mg/dL; PROTEIN 20.2 mg/dL; Prot/Crea Ur Ratio 0.31
[2021-08-05 13:23] LABS: Tacrolimus 8.3 ng/mL (See Note)
== END 2021-08-04 03:59 | disposition home or self-care (01) ==
LOC: LBO 03:58
PROVIDERS: PCP Nurse Practitioner Family; Visit Provider Internal Medicine Nephrology
DX: Z94.0 Kidney transplant status (principal); Z79.899 Other long term (current) drug therapy
CPT/HCPCS: 36415; 80053; 80197; 85027; 81003; 82465; 82565; 83735; 84100; 84156; 84550

== ENCOUNTER 2021-11-02 04:08 | Outpatient (CLI) | payer MEDICARE, BC, SELFPAY ==
[2021-11-02 07:32] LABS: HCT 40.6 % (40.0-50.0); HGB 13.8 g/dL (13.5-17.5); MCH 32.2 pg (27.0-33.0); MCV 95 fL (80-95); MPV 9.7 fL (8.0-11.0); Platelet Count 176 10^3/uL (130-400); RBC 4.28 10^6/uL (4.36-5.78); RDW 13.3 % (11.8-14.1); RDW-SD 46.5 fL; WBC 6.49 10^3/uL (4.4-10.8)
[2021-11-02 07:38] LABS: Bilirubin Negative (Negative); Blood Negative (Negative); Clarity Clear (Clear); Glucose Negative (Negative); Ketones Negative (Negative); Leukocyte Esterase Negative (Negative); Nitrite Negative (Negative); Specific Gravity 1.025 (1.005-1.025); Urobilinogen 0.2 EU/dL (Up TO 0.2)
[2021-11-02 08:29] LABS: ALT 34 U/L (16-63); AST 22 U/L (15-37); Albumin 3.6 g/dL (3.4-5.0); Alkaline Phosphatase 62 U/L (46-116); Anion Gap 10.9 mmol/L (3-11); BUN 36 mg/dL (7-18); Bilirubin, Total 0.7 mg/dL (0.2-1.0); CO2 24.1 mmol/L (21.0-32.0); CREATININE 2.1 mg/dL (0.70-1.30); Calcium 8.8 mg/dL (8.5-10.1); Chloride 105 mmol/L (98-107); Estimated GFR 32.95 (mL/min/1.73m2); Glucose 152 mg/dL (74-106); Magnesium 1.6 mg/dL (1.8-2.4); PHOSPHORUS 3.5 mg/dL (2.6-4.7); Potassium 4.3 mmol/L (3.5-5.1); Sodium 140 mmol/L (136-145); Total Protein 6.7 g/dL (6.4-8.2); Uric Acid 7.3 mg/dL (3.5-7.2)
[2021-11-02 16:56] LABS: Cholesterol 147 mg/dL (<200)
[2021-11-02 17:23] LABS: COMMENT (LAB VIEW ONLY) 94.94 mg/dL; PROTEIN 13.2 mg/dL; Prot/Crea Ur Ratio 0.13
[2021-11-03 13:49] LABS: Tacrolimus 17.2 ng/mL (See Note)
== END 2021-11-02 04:09 | disposition home or self-care (01) ==
LOC: LBO 04:08
PROVIDERS: PCP Nurse Practitioner Family; Visit Provider Internal Medicine Nephrology
DX: Z94.0 Kidney transplant status (principal); Z79.899 Other long term (current) drug therapy
CPT/HCPCS: 36415; 80053; 85027; 80197; 81003; 82465; 82565; 83735; 84100; 84156; 84550

== ENCOUNTER → 2021-11-16 13:52 | Outpatient (BNVA) | payer MEDICARE, BC, SELFPAY | PROVIDERS: PCP Nurse Practitioner Family; Referring Provider Nurse Practitioner Family; Visit Provider Nurse Practitioner Adult Health | DX: G56.03 Carpal tunnel syndrome, bilateral upper limbs (principal) | CPT/HCPCS: 95911; 99203; 99214 ==

== ENCOUNTER 2022-01-06 03:45 | Outpatient (CLI) | payer MEDICARE, BC, SELFPAY ==
[2022-01-06 09:51] LABS: HCT 39.6 % (40.0-50.0); HGB 13.8 g/dL (13.5-17.5); MCH 32.6 pg (27.0-33.0); MCHC 34.8 % (32.0-36.0); MCV 94 fL (80-95); MPV 9.8 fL (8.0-11.0); Platelet Count 186 10^3/uL (130-400); RBC 4.23 10^6/uL (4.36-5.78); RDW 13.6 % (11.8-14.1); RDW-SD 46.3 fL; Reticulocyte 2.2 % (0.5-2.4); WBC 7.72 10^3/uL (4.4-10.8)
[2022-01-06 09:58] LABS: Bilirubin Negative (Negative); Blood Negative (Negative); Clarity Clear (Clear); Glucose Negative (Negative); Ketones Negative (Negative); Leukocyte Esterase Negative (Negative); Nitrite Negative (Negative); Urobilinogen 0.2 EU/dL (Up TO 0.2)
[2022-01-06 10:16] LABS: Hemoglobin A1C 6.8 % (<5.7)
[2022-01-06 10:22] LABS: ALT 39 U/L (16-63); AST 27 U/L (15-37); Albumin 3.8 g/dL (3.4-5.0); Alkaline Phosphatase 67 U/L (46-116); Anion Gap 9.8 mmol/L (3-11); BUN 40 mg/dL (7-18); Bilirubin, Total 0.6 mg/dL (0.2-1.0); CO2 24.2 mmol/L (21.0-32.0); CREATININE 1.9 mg/dL (0.70-1.30); Chloride 102 mmol/L (98-107); Estimated GFR 36.99 (mL/min/1.73m2); Glucose 157 mg/dL (74-106); Magnesium 1.4 mg/dL (1.8-2.4); PHOSPHORUS 3.6 mg/dL (2.6-4.7); Potassium 4.2 mmol/L (3.5-5.1); Sodium 136 mmol/L (136-145); Total Protein 7.4 g/dL (6.4-8.2); Uric Acid 7.2 mg/dL (3.5-7.2)
[2022-01-06 10:33] LABS: Calculated LDL 49 mg/dL (<100); Cholesterol 154 mg/dL (<200); HDL Cholesterol 37 mg/dL (40-60); Triglyceride 344 mg/dL (<150)
[2022-01-06 11:50] LABS: COMMENT (LAB VIEW ONLY) 26.58 mg/dL; PROTEIN < 6.0 mg/dL
[2022-01-06 23:03] LABS: Parathyroid Hormone,Intact 16 pg/mL (19-88)
[2022-01-07 04:40] LABS: Vitamin D 25 Total 19.5 ng/mL (30-100)
[2022-01-07 09:50] LABS: Calcium (Random Urine) 3.8 mg/dL (See Note); Phosphorus Urine 17.4 mg/dL (See Note)
[2022-01-07 09:56] LABS: Magnesium Random Urine <2.0 mg/dL (See Note)
[2022-01-07 13:24] LABS: Tacrolimus 10.5 ng/mL (See Note)
[2022-01-08 14:35] LABS: BKV DNA Detect/Quant, U Undetected IU/mL (Undetected)
[2022-01-10 16:09] LABS: 1,25-Dihydroxyvitamin D 11 pg/mL (18-64)
== END 2022-01-06 03:46 | disposition home or self-care (01) ==
LOC: LBO 03:45
PROVIDERS: PCP Nurse Practitioner Family; Visit Provider Internal Medicine Nephrology
DX: E55.9 Vitamin D deficiency, unspecified (principal); Z94.0 Kidney transplant status; Z79.899 Other long term (current) drug therapy; Z29.8 Encounter for other specified prophylactic measures
CPT/HCPCS: 36415; 80053; 80061; 82306; 83735; 85027; 85045; 87799; 80197; 81003; 82340; 82565; 82652; 83036; 83970; 84100; 84105; 84156; 84550

== ENCOUNTER 2022-01-08 10:40 | Outpatient (CLI) | payer MEDICARE, BC, SELFPAY ==
[2022-01-09 12:04] LABS: SARS-CoV-2 Spike Ab, Interp Positive; SARS-CoV-2 Spike Ab, Quant >250 U/mL
== END 2022-01-08 10:41 | disposition home or self-care (01) ==
LOC: LBO 10:41
PROVIDERS: PCP Nurse Practitioner Family; Visit Provider Internal Medicine Nephrology
DX: E55.9 Vitamin D deficiency, unspecified (principal); Z94.0 Kidney transplant status; Z79.899 Other long term (current) drug therapy; Z01.84 Encounter for antibody response examination
CPT/HCPCS: 36415; 86769; 99214

== ENCOUNTER 2022-01-13 06:15 | Day surgery (SDC) | payer MEDICARE, BC, SELFPAY ==
[2022-01-13] VITALS (7 sets, daily range): BP systolic 120–138; BP diastolic 52–73; PULSE 65–74; RESP 12–18; TEMP 36.3–36.4; TEMPC 36.3; O2SAT 94–97; BMI 41.3
[2022-01-13] MEDS: Lactated Ringers 1,000 ML 80 ML IV (06:52)
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
[2022-01-13] MEDS: ceFAZolin 3,000 MG in Normal Saline 100 ML 200 MG IVPB (07:26)
--- NOTE | 2022-01-13 07:31 | W.PM.DSUDISC ---
Discharge Plan Disposition Patient Disposition: HOME Condition: Good Discharge Details Reason For Visit: L ECTR, LLF, LMF trigger release Attending Provider: Quincy Hernandez Primary Care Provider: Deandre Herring Home Meds and New Rx's Prescriptions: New acetaminophen 500 mg tablet 1,000 mg PO TID Qty: 90 0RF hydrocodone-acetaminophen 5-325 mg tablet 1 tab PO Q6H PRN (Reason: pain) Qty: 6 0RF Continued tacrolimus 1 mg capsule,extended release 24hr 3 mg PO QAM Qty: 360 0RF Rx Instructions: must administer in the morning on an empty stomach, 1 hour before or 2 hours after a meal (DME) pen needle, diabetic 31 gauge x 1/3 needle 1 ea Sub-Q BID Qty: 100 5RF Rx Instructions: INSULIN PEN NEEEDLE 31G X 3/16 B/D One each bid calcium carbonate [Oyster Shell Calcium] 500 mg calcium (1,250 mg) tablet 500 mg PO BID (DME) lancets Misc See Rx Instructions .MEDSUPPLY Qty: 200 3RF Rx Instructions: FREE STYLE/ Use as directed to check daily blood glucose. Db type 2 Insulin dependent insulin lispro [Humalog KwikPen Insulin] 100 unit/mL insulin pen 35 unit SC TID Qty: 15 11RF gabapentin 100 mg capsule 300 mg PO QHS Qty: 270 4RF Rx Instructions: 3 caps at bedtime insulin glargine [Lantus Solostar U-100 Insulin] 100 unit/mL (3 mL) insulin pen 45 unit subcut BID Qty: 30 3RF (DME) FreeStyle Lite Strips Strip 1 ea Miscellaneous TID Qty: 300 5RF Rx Instructions: Test 5 times a day atorvastatin 20 mg Tablet 20 mg PO DAILY aspirin 81 mg Tablet,Delayed Release (Dr/Ec) 81 mg PO DAILY tolterodine 2 mg Tablet 2 mg PO DAILY tamsulosin 0.4 mg Capsule 0.4 mg PO DAILY diltiazem HCl 120 mg Capsule,Extended Release 24 Hr 120 mg PO DAILY calcitriol 0.5 mcg Capsule 0.5 mcg PO BID Discharge Instructions Stand Alone Forms: Anesthesia Discharge Inst. Activity:: Activity as Tolerated Remove Dressings/Wound Care:: 48 hours Shower/Bathe:: 48 hours Diet:: As Tolerated Discharge Orders Discharge Orders: Discharge Order (Routine); Ordered 01/13/22 Ordered By: Kvng Harrington Discharge Data Discharge Date/Time-TO BE ENTERED AT DEPARTURE: 01/13/22 09:20 DS: Diagnosis Discharge Diagnosis (1) Trigger finger, left little finger: Status: Acute (2) Trigger finger, left middle finger: Status: Acute (3) Bilateral carpal tunnel syndrome: Status: Acute
[2022-01-13] MEDS: Lidocaine 1% Multi-Dose W/EPI 1/100,000 50 ML VIAL (07:43)
--- NOTE | 2022-01-13 08:08 | W.ANESPOSTOP ---
Postoperative Evaluation Date, Time and Location Date Performed: 01/13/22 Time Performed: 08:08 Patient Location: PACU Vital Signs Most Recent Imported Vital Signs: Most Recent Vital Signs Temp Pulse Resp BP Pulse Ox 36.4 C L 68 18 138/73 94 01/13/22 06:15 01/13/22 06:15 01/13/22 06:15 01/13/22 06:15 01/13/22 06:15 Most Recent Manually Entered Vital Signs: Adult Blood Pressure: 123/59 Heart Rate: 73 Respirations: 12 Oxygen Saturation (%): 96 Temperature (C): 36.3 C Pain Score (0-10 Scale): 0 Assessment Mental Status: Awake (Alert & Oriented to Patient Baseline) Airway and Respiratory Function: Patent airway with normal (patient baseline) respiratory exam Cardiovascular Function: Hemodynamically Stable Hydration Status: Adequately Hydrated Nausea & Vomiting: No Nausea or Vomiting Pain: Pt. Denies Any Pain Peripheral Nerve Block: Patient did not receive a nerve block
--- NOTE | 2022-01-13 14:18 | ROE_ITS ---
Date of service: 01/13/22 Time of Service: 07:50 Operative Note Operative Note DATE OF PROCEDURE: 01/13/22 PRE-OP DIAGNOSIS: Left Carpal Tunnel Syndrome, Left Small Finger Trigger Finger, Left Middle Finger Trigger Finger POST-OP DIAGNOSIS: same PROCEDURE: Left Endoscopic Carpal Tunnel Release, Trigger Finger Release - Left Middle and Small Fingers SURGEON: Quincy Hernandez ANESTHESIA TYPE: General:No Airway Refer to Anesthesia Record ESTIMATED BLOOD LOSS: 0 PATHOLOGY: none sent TOURNIQUET TIME: 15 COMPLICATIONS: None Patient was transported to: same day Patient's condition: stable Indications: I have seen Cl in clinic for symptoms of carpal tunnel syndrome as well as multiple trigger fingers. The numbness, tingling, and pain limited function. Clinical exam findings with nerve conduction tests confirmed the diagnosis of carpal tunnel syndrome. Nonoperative measures such as bracing, time, activity modifications had been tried but disability and pain persisted. I discussed carpal tunnel release with the patient. I reviewed the risks of the procedure to include, but not limited to, bleeding, infection, pain, stiffness, incomplete release, damage to nerves or vessels, persistent numbness, recurrence. Despite these risks, the patient elected to proceed. Since the trigger fingers of his middle and small fingers were causing such dysfunction I also offered trigger finger releases. I reviewed the risk of this procedure as well and he agreed to proceed. Findings: There was tightened carpal tunnel. This was dilated and released successfully with the endoscopic with increased space within the tunnel. The antebrachial fascia was released proximally freeing the median nerve at the wrist. The A1 pulleys of the middle finger and small finger were quite tight and were released successfully. Procedure Description: Cl was greeted in the preoperative holding area where the correct side was identified and marked. The consent was reviewed with the patient and signed. The history and physical was updated. All questions were answered. Cl was taken back to the operating room. The patient was placed into the supine position on the operating room table with the left arm on an arm board. All bony prominences were well padded. Prophylactic antibiotics in the form of Cefazolin were administered. The left arm was then prepped with Chloraprep and draped in a standard fashion with stockinette and extremity drape. A timeout to confirm correct identity, side and site, procedure, allergies, anesthesia, and medical concerns was performed. The surgical site was marked in the volar wrist creases in line with the radial border of the fourth ray. This area was anesthetized with approximately 6cc of 1% Lidocaine with epinephrine buffered with sodium bicarb. The proposed incisi on sites for the trigger finger releases were also marked on the skin and anesthetized with 1% lidocaine with epinephrine, buffered with sodium bicarbonate. The limb was then exsanguinated with an Esmarch and Esmarch tourniquet was used on the forearm given his fistula site proximally. The skin was incised with a 15 blade, approximately 1cm. The skin only was cut and the deeper tissue was dissected bluntly with a tenotomy scissor, avoiding passing nerve and venous structures. The fascia was penetrated and opened bluntly. A two-prong skin hook was placed under this proximal fascial edge. A series of hamate finders were used to identify and dilate the carpal tunnel. Synovial elevator was used to free synovial attachments to the underside of the transverse carpal ligament. My thumb was kept in the palm to medardo the distal extent of the carpal tunnel and correctly position the hand. The [employer] endoscope was inserted without difficulty and without resistance. Excellent visualization showed horizontally running fibers of the transverse carpal ligament (TCL). The distal extent of the TCL was visualized and the end of the scope palpated with the thumb. The blade was elevated and withdrawn from distal to proximal. The TCL was split into two flaps. The endoscope was reinserted to confirm complete release and any remnant ligament was incised. The scope was withdrawn and the proximal aspect of the carpal tunnel was grossly inspected and appeared release with the median nerve visible. The antebrachial fascia at the level of the wrist was then freed from the overlying skin and then the underlying median nerve with blunt dissection. This was transected longitudinally for about 3cm proximal to the wrist incision. The wound was then irrigated with easy flow of irrigant distally and proximally. The incision was closed with a single 4-0 Nylon suture. Attention was then turned to the trigger finger releases. Start with the middle finger a longitudinal incision approxi-1 cm in length was made. This was taken down to the skin sharply. Blunt dissection was carried out with tenotomy scissors to clear soft tissue from overlying A1 joi. A1 joi was identified and using the scissors is able to incise the joi. It was incised fully and inspected both proximally and distally. Hemostat was placed underneath the tendon the tendon was able to be withdrawn from the hand. Once again this was inspected and showed no other signs of compression. I then turned attention to the small finger. Staying within the distal flexion crease of the palm I incised a 1 and half centimeter incision. This was sharply taken through the skin. Blunt dissection was carried soft tissue in the tendon and the A1 joi was easily identified. The A1 joi was released with the scissors. There is notable release of the tendon. The tendon was withdrawn from the hand using a hemostat. There is no other injury to the tendon identified. These 2 wounds were then irrigated. Each was closed with 4-0 nylon sutures. The wounds were dressed with Xeroform, Gauze, Kerlix and Calderon. The Esmarch tourniquet was released. Blood flow returned easily to all digits with capillary refill less than 2 seconds. The patient tolerated the procedure well and was returned to the Same Day Surgery area in a stable condition suffering no known complication.
== END 2022-01-13 09:20 | disposition home or self-care (01) ==
PROVIDERS: PCP Nurse Practitioner Family; Visit Provider Student in an Organized Health Care Education/Training Program
PROC: 01N54ZZ Release Median Nerve, Percutaneous Endoscopic Approach (ICD-10-PCS; CPT 29848; principal; 2022-01-13 07:30)
PROC: (CPT 26055; 2022-01-13 07:30)
DX: G56.02 Carpal tunnel syndrome, left upper limb (principal); M65.352 Trigger finger, left little finger; M65.332 Trigger finger, left middle finger
CPT/HCPCS: 26055 ×2; 29848; J0690

== ENCOUNTER → 2022-01-22 09:52 | Outpatient (BNVA) | payer MEDICARE, BC, SELFPAY | PROVIDERS: PCP Nurse Practitioner Family; Referring Provider Nurse Practitioner Family; Visit Provider Physician Assistant | DX: M65.332 Trigger finger, left middle finger (principal); M65.352 Trigger finger, left little finger; G56.03 Carpal tunnel syndrome, bilateral upper limbs; Z47.89 Encounter for other orthopedic aftercare ==

== ENCOUNTER 2022-02-02 03:25 | Outpatient (CLI) | payer MEDICARE, BC, SELFPAY ==
[2022-02-02 08:40] LABS: HCT 41.8 % (40.0-50.0); HGB 14.1 g/dL (13.5-17.5); MCH 31.9 pg (27.0-33.0); MCHC 33.7 % (32.0-36.0); MCV 95 fL (80-95); MPV 9.7 fL (8.0-11.0); Platelet Count 178 10^3/uL (130-400); RBC 4.42 10^6/uL (4.36-5.78); RDW 13.3 % (11.8-14.1); RDW-SD 46.9 fL; WBC 5.46 10^3/uL (4.4-10.8)
[2022-02-02 08:43] LABS: Bilirubin Negative (Negative); Blood Negative (Negative); Clarity Clear (Clear); Glucose Negative (Negative); Ketones Negative (Negative); Leukocyte Esterase Negative (Negative); Nitrite Negative (Negative); Specific Gravity 1.015 (1.005-1.025); Urobilinogen 0.2 EU/dL (Up TO 0.2)
[2022-02-02 09:24] LABS: PROTEIN 8.3 mg/dL; Prot/Crea Ur Ratio 0.25
[2022-02-02 09:27] LABS: Cholesterol 166 mg/dL (<200)
[2022-02-02 09:28] LABS: ALT 33 U/L (16-63); AST 21 U/L (15-37); Albumin 3.7 g/dL (3.4-5.0); Alkaline Phosphatase 63 U/L (46-116); Anion Gap 8.4 mmol/L (3-11); BUN 35 mg/dL (7-18); Bilirubin, Total 0.7 mg/dL (0.2-1.0); CO2 26.6 mmol/L (21.0-32.0); CREATININE 1.9 mg/dL (0.70-1.30); Calcium 9.2 mg/dL (8.5-10.1); Chloride 104 mmol/L (98-107); Estimated GFR 36.99 (mL/min/1.73m2); Glucose 152 mg/dL (74-106); Magnesium 1.5 mg/dL (1.8-2.4); PHOSPHORUS 3.5 mg/dL (2.6-4.7); Sodium 139 mmol/L (136-145); Total Protein 7.5 g/dL (6.4-8.2); Uric Acid 6.6 mg/dL (3.5-7.2)
[2022-02-03 13:34] LABS: Tacrolimus 8.3 ng/mL (See Note)
== END 2022-02-02 03:26 | disposition home or self-care (01) ==
LOC: LBO 03:26
PROVIDERS: PCP Nurse Practitioner Family; Visit Provider Internal Medicine Nephrology
DX: Z29.8 Encounter for other specified prophylactic measures (principal); Z94.0 Kidney transplant status; Z79.899 Other long term (current) drug therapy; I10 Essential (primary) hypertension; E11.9 Type 2 diabetes mellitus without complications
CPT/HCPCS: 36415; 80053; 85027; 80197; 81003; 82465; 82565; 83735; 84100; 84156; 84550

== ENCOUNTER → 2022-02-19 10:54 | Outpatient (BNVA) | payer MEDICARE, BC, SELFPAY | PROVIDERS: PCP Nurse Practitioner Family; Referring Provider Nurse Practitioner Family; Visit Provider Student in an Organized Health Care Education/Training Program | DX: G56.03 Carpal tunnel syndrome, bilateral upper limbs (principal); M65.332 Trigger finger, left middle finger; M65.352 Trigger finger, left little finger ==

== ENCOUNTER 2022-04-13 03:55 | Outpatient (CLI) | payer MEDICARE, BC, SELFPAY ==
[2022-04-13 08:55] LABS: HCT 44.2 % (40.0-50.0); MCH 32.5 pg (27.0-33.0); MCHC 33.9 % (32.0-36.0); MCV 96 fL (80-95); MPV 9.7 fL (8.0-11.0); Platelet Count 176 10^3/uL (130-400); RBC 4.62 10^6/uL (4.36-5.78); RDW 13.4 % (11.8-14.1); RDW-SD 47.4 fL; WBC 5.81 10^3/uL (4.4-10.8)
[2022-04-13 08:57] LABS: Bilirubin Negative (Negative); Blood Negative (Negative); Clarity Clear (Clear); Glucose Negative (Negative); Ketones Negative (Negative); Leukocyte Esterase Negative (Negative); Nitrite Negative (Negative); Specific Gravity 1.015 (1.005-1.025); Urobilinogen 0.2 EU/dL (Up TO 0.2)
[2022-04-13 09:26] LABS: COMMENT (LAB VIEW ONLY) 25.25 mg/dL; PROTEIN 7.7 mg/dL
[2022-04-13 09:29] LABS: Cholesterol 179 mg/dL (<200)
[2022-04-13 09:30] LABS: ALT 46 U/L (16-63); AST 27 U/L (15-37); Albumin 3.9 g/dL (3.4-5.0); Alkaline Phosphatase 58 U/L (46-116); Anion Gap 6.3 mmol/L (3-11); BUN 41 mg/dL (7-18); Bilirubin, Total 0.6 mg/dL (0.2-1.0); CO2 27.7 mmol/L (21.0-32.0); CREATININE 1.9 mg/dL (0.70-1.30); Calcium 9.3 mg/dL (8.5-10.1); Chloride 103 mmol/L (98-107); Estimated GFR 41.14 (mL/min/1.73m2); Glucose 117 mg/dL (74-106); Magnesium 1.5 mg/dL (1.8-2.4); PHOSPHORUS 3.7 mg/dL (2.6-4.7); Sodium 137 mmol/L (136-145); Total Protein 7.7 g/dL (6.4-8.2); Uric Acid 6.2 mg/dL (3.5-7.2)
[2022-04-14 14:07] LABS: Tacrolimus 7.2 ng/mL (See Note)
== END 2022-04-13 03:56 | disposition home or self-care (01) ==
LOC: LBO 03:56
PROVIDERS: PCP Nurse Practitioner Family; Visit Provider Internal Medicine Nephrology
DX: Z51.81 Encounter for therapeutic drug level monitoring (principal); Z94.0 Kidney transplant status; Z79.899 Other long term (current) drug therapy
CPT/HCPCS: 80053; 80197; 85027; 81003; 82465; 82565; 83735; 84100; 84156; 84550

== ENCOUNTER 2022-06-22 03:49 | Outpatient (CLI) | payer MEDICARE, SELFPAY ==
[2022-06-22 11:18] LABS: HGB 14.4 g/dL (13.5-17.5); MCH 32.4 pg (27.0-33.0); MCHC 34.3 % (32.0-36.0); MCV 94 fL (80-95); MPV 9.6 fL (8.0-11.0); Platelet Count 174 10^3/uL (130-400); RBC 4.45 10^6/uL (4.36-5.78); RDW 13.3 % (11.8-14.1); RDW-SD 46.2 fL; WBC 6.15 10^3/uL (4.4-10.8)
[2022-06-22 11:20] LABS: Bilirubin Negative (Negative); Blood Negative (Negative); Clarity Clear (Clear); Glucose Negative (Negative); Ketones Negative (Negative); Leukocyte Esterase Negative (Negative); Nitrite Negative (Negative); Specific Gravity <= 1.005 (1.005-1.025); Urobilinogen 0.2 EU/dL (Up TO 0.2); pH 5.5 (5-8)
[2022-06-22 11:21] LABS: Calculated LDL 77 mg/dL (<100); Cholesterol 168 mg/dL (<200); HDL Cholesterol 44 mg/dL (40-60); Triglyceride 239 mg/dL (<150)
[2022-06-22 11:23] LABS: ALT 54 U/L (16-63); AST 29 U/L (15-37); Albumin 3.9 g/dL (3.4-5.0); Alkaline Phosphatase 68 U/L (46-116); Anion Gap 6.3 mmol/L (3-11); BUN 41 mg/dL (7-18); Bilirubin, Total 0.7 mg/dL (0.2-1.0); CO2 27.7 mmol/L (21.0-32.0); CREATININE 2.1 mg/dL (0.70-1.30); Chloride 101 mmol/L (98-107); Estimated GFR 36.49 (mL/min/1.73m2); Glucose 108 mg/dL (74-106); Magnesium 1.6 mg/dL (1.8-2.4); PHOSPHORUS 3.6 mg/dL (2.6-4.7); Potassium 4.3 mmol/L (3.5-5.1); Sodium 135 mmol/L (136-145); Total Protein 7.5 g/dL (6.4-8.2)
[2022-06-22 12:09] LABS: COMMENT (LAB VIEW ONLY) 23.18 mg/dL; PROTEIN < 6.0 mg/dL
[2022-06-23 13:25] LABS: Tacrolimus 6.8 ng/mL (See Note)
== END 2022-06-22 03:50 | disposition home or self-care (01) ==
LOC: LBO 03:50
PROVIDERS: PCP Nurse Practitioner Family; Visit Provider Internal Medicine Nephrology
DX: E11.9 Type 2 diabetes mellitus without complications (principal); Z94.0 Kidney transplant status; Z79.899 Other long term (current) drug therapy; Z29.8 Encounter for other specified prophylactic measures
CPT/HCPCS: 36415; 80053; 80061; 85027; 80197; 81003; 82565; 83735; 84100; 84156; 84550

== ENCOUNTER → 2022-07-20 09:24 | Outpatient (BNVA) | payer MEDICARE, SELFPAY | PROVIDERS: PCP Nurse Practitioner Family; Referring Provider Nurse Practitioner Family; Visit Provider Surgery | DX: Z12.11 Encounter for screening for malignant neoplasm of colon (principal) | CPT/HCPCS: 99243 ==

== ENCOUNTER 2022-08-09 00:40 | Outpatient (CLI) | payer MEDICARE, SELFPAY ==
--- NOTE | 2022-08-09 07:00 | DI.NM_ITS ---
APPROVED REPORT Exam: Pharmacologic Patient Location: Out-Patient Room/Bed: Ordering Provider:KARAN MOODY, Contact Number: [phone] BMI: 43.04 Baseline Rhythm: Sinus Rhythm Indications: Preoperative clearance, status post renal transplant, LEWIS Medical History Medical History: Hypertension, hyperlipidemia, diabetes, obesity, smoker (former), PRETTY, renal failure , hx kidney transplant, fibromyalgia, hx amputation Cardiac Medications: Diltiazem, aspirin, atorvastatin, lispro, insulin glargine, gabapentin Allergies: Ketamine, simvastatin Cardiac Risk Factors: Hypertension, hyperlipidemia, diabetes, smoker (former), obesity Previous Cardiac Procedures: None Pretest Chest Pain Characteristics: None Exercise History: Sedentary Physical Disabilities: Feet Lung Sounds: Clear to auscultation Heart Sounds: Regular Stress Test Details Test: Pharmacologic stress was paired with low level exercise. Reason for pharmacologic stress test: physical limitation. Nuclear Acquisition: Rest Tc-99m/Stress Tc-99m 1 day Rest Isotope: Tc-99m Sestamibi. Dose: 13.0 Date: 08/09/2022 Injection Time: 0900 Stress Isotope: Tc-99m Sestamibi. Dose: 45.0 Date: 08/09/2022 Injection Time: 1025 HR Resting HR Supine: 73 bpm Max Heart Rate (APMHR): 165.902853 bpm Resting HR Standin bpm Target HR (85% APMHR): 140.084965 bpm Max HR Achieved: 124 bpm % of APMHR: 75.15 Recovery HR: 83 bpm HR response to stress: Normal HR response to stress BP Resting BP Supine: 148/76 mmHg Resting BP Standin/54 mmHg Max BP: 200/52 mmHg Recovery BP: 144/60 mmHg BP response to stress: Abnormal hypertensive response to stress. ECG Resting ECG: Sinus Rhythm Ectopy: None Stress ECG: Sinus Tachycardia ST Change: No significant ST segment changes noted Arrhythmia: None Recovery ECG: Sinus Rhythm Recovery ST Change: No significant ST segment changes noted Recovery Arrhythmia: Rare PVCs Clinical Reason for Termination: Fatigue Stress Symptoms: General Fatigue, lightheadedness Angina Score: None Rate Pressure Product: [id number] Stress ECG Conclusion 1. Resting electrocardiogram showed sinus rhythm, long QTc 2. Patient underwent testing using a combination of low-level exercise and pharmacologic stress with regadenoson 3. Peak heart rate achieved was 75% of predicted for age 4. The electrocardiographic portion of the test was nondiagnostic due to inadequate heart rate 5. See MPI report Stress Test Summary STAGE HR BP SpO2 Symptoms NOTES Supine 73 148/76 Standing 79 138/54 95% 1 min post Lexiscan injection 121 178/58 95% Lightheaded 3 min post Lexiscan injection 92 200/52 95% 6 min post Lexiscan injection 83 144/60 95% Symptoms resolved Pharmacologic stress was paired with low level exercise at 1.1-1.5mph and 0% grade due to physical li mitations. Patient tolerated stress testing well. MPI Conclusion Myocardial perfusion imaging is notable for equivocal small area of apical ischemia. There is no inf arction Wall motion is normal. Calculated EF is 42% Radiologist Interpretation Radiologist Interpretation by: Boubacar Franklin MD Interpretation Date/Time: 08/09/2022 16:58:28
[2022-08-09] MEDS: Regadenoson 0.4 MG/5 ML SYR IVP (10:49)
== END 2022-08-09 01:00 ==
LOC: DI 00:41
PROVIDERS: PCP Nurse Practitioner Family; Visit Provider Surgery
DX: R06.09 Other forms of dyspnea (principal); Z01.818 Encounter for other preprocedural examination; Z94.0 Kidney transplant status
CPT/HCPCS: 78452; 93016; 93018; 93017; J2785

== ENCOUNTER 2022-09-21 06:11 | Day surgery (SDC) | payer MEDICARE, SELFPAY ==
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
[2022-09-21 06:29] VITALS: BP 142/72; PULSE 73; RESP 16; TEMP 36.3; O2SAT 98
[2022-09-21] MEDS: Lactated Ringers 1,000 ML 80 ML IV (06:58)
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
[2022-09-21 07:11] VITALS: BMI 42.4
[2022-09-21] MEDS: AMPICILLIN SODIUM 2 GM in Normal Saline 100 ML IVPB (07:22)
--- NOTE | 2022-09-21 08:12 | BOWEL_PTH ---
PATIENT: Cl Alba LOC: [facility] U#:[id number] AGE/SX: 56/M ROOM: RE09/21/[address]: Antonio Hwang : 1965 BED: DIS: 09/21/2022 SPEC #: [id number] RECD: 09/21/22 12:31 STATUS: [facility] #: [id number] DAHIANA: 09/21/22 08:[address]: Antonio Hwang DEPT: Surgical Specimen RECD BY: Mary Jane Guzman ENTERED: 09/21/22 12:34 SP TYPE: Bowel OTHR DR: Deandre Herring, INVESTIGATOR OPERATOR Tissues: 1 - BIOPSY BOWEL 2 - BIOPSY BOWEL 3 - BIOPSY BOWEL 4 - BIOPSY BOWEL 5 - BIOPSY BOWEL Procedures: GROSS AND MICRO LEVEL 4 Comments: [id number]
[2022-09-21 08:54] VITALS: BP 103/44; PULSE 63; RESP 16; TEMP 36.3; O2SAT 93
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
--- NOTE | 2022-09-21 09:13 | W.PM.OP ---
Date of service: 09/21/22 Time of Service: 09:13 Operative Note Operative Note DATE OF PROCEDURE: 09/21/22 PRE-OP DIAGNOSIS: adenomastous polyps POST-OP DIAGNOSIS: other (Severe rangel diverticula. Multiple polyps) SURGEON: Tammie Tiwari ANESTHESIA TYPE: General LMA/ETT Refer to Anesthesia Record ESTIMATED BLOOD LOSS: 1 PATHOLOGY: other COMPLICATIONS: None Patient was transported to: same day Patient's condition: stable Procedure Description: After informed consent was obtained the patient was taken to the procedure room and placed in a left decubitous position. Monitors were applied and a time out was done. The patients name, date of , procedure, allergies to medications and metal in their body was reviewed. The patient was then sedated. Once sedated and comfortable a rectal exam was done. External exam was normal. Internal exam revealed a normal sphincter tone and no palpable masses. The scope was then introduced and retrofelexed. No internal hemorrhoids were identified. The scope was then advanced to the cecum [] difficulty. The TI and appendiceal orifice were identified. The prep was []. The scope was then slowly retracted over [] minutes back into the rectum. Polyps were removed at []. The scope was removed and the patient was woken up and taken back to Same day surgery in stable condition. The patient tolerated the procedure well and there were no immediate complications. Follow up: The patient should follow up in [] years unless they develop changes in bowel habits or other new gastrointestinal complaints.
--- NOTE | 2022-09-21 09:13 | W.ANESPOSTOP ---
Postoperative Evaluation Date, Time and Location Date Performed: 09/21/22 Time Performed: 09:14 Patient Location: Day Surgery Unit Vital Signs Most Recent Imported Vital Signs: Most Recent Vital Signs Temp Pulse Resp BP Pulse Ox 36.3 C L 63 16 103/44 L 93 09/21/22 08:54 09/21/22 08:54 09/21/22 08:54 09/21/22 08:54 09/21/22 08:54 Pain Score Most Recent Pain Score: Most Recent Pain Score Pain Level 0 09/21/22 08:54 Assessment Mental Status: Awake (Alert & Oriented to Patient Baseline) Airway and Respiratory Function: Patent airway with normal (patient baseline) respiratory exam Cardiovascular Function: Hemodynamically Stable (bp 121/50) Hydration Status: Adequately Hydrated Nausea & Vomiting: No Nausea or Vomiting Pain: Pt. Denies Any Pain Peripheral Nerve Block: Patient did not receive a nerve block
[2022-09-21 09:27] VITALS: BP 140/57; PULSE 68; RESP 18; TEMP 36.4; O2SAT 97
--- NOTE | 2022-09-21 19:38 | COLE_ITS ---
Date of service: 09/21/22 Time of Service: 09:00 Colonoscopy Report Date of procedure: 09/21/22 Pre-op diagnosis general: Hx of adenomatous polyps Post-op diagnosis procedure note: other (And diverticula/multiple polyps) Surgeon: Tammie Tiwari Anesthesia Type: General LMA/ETT Estimated blood loss (mL): 1 Pathology: other Complications: None Disposition: same day Prep: Miralax/Dulcolax Retraction Time: 41 mins Procedure Description: After informed consent was obtained the patient was taken to the procedure room and placed in a left decubitous position. Monitors were applied and a time out was done. The patients name, date of , procedure, allergies to medications and metal in their body was reviewed. The patient was then sedated. Once sedated and comfortable a rectal exam was done. External exam was normal. Internal exam revealed a normal sphincter tone and no palpable masses. The prostate-not palpable. The scope was then introduced and retrofelexed. No internal hemorrhoids were identified. The scope was then advanced to the cecum without difficulty. The TI and appendiceal orifice were identified. The prep was BBPS 2 in all segments for a total of 6.. The scope was then slowly retracted over 41 minutes back into the rectum. He has numerous largemouthed diverticuli that do extend all the way over to the cecum. I would call this severe diverticular disease. There is no signs of active bleeding or infection. The mucosa is otherwise pink and healthy, normal vascular pattern.. He has 8 polyps that we removed today. There are 4 polyps at 70 cm. Two of these are removed with a cold snare-these polyps are 0.75 cm and flat. The remaining 2 are removed with a cold biting forcep-these polyps are 5 mm and flat. There are flat 5 mm polyps noted at 60 cm , 50 cm , and 20 cm. All of these polyps are removed with a cold biting forcep. There is a 0.75 cm pedunculated polyp in the rectum adjacent to the anal sphincters. This was removed with a hot snare. All specimens are retri eved and no bleeding is noted. The scope was removed and the patient was woken up and taken back to Same day surgery in stable condition. The patient tolerated the procedure well and there were no immediate complications. Follow up: The patient should follow up in 3-5 years, path pd, unless they develop changes in bowel habits or other new gastrointestinal complaints.
== END 2022-09-21 09:50 | disposition home or self-care (01) ==
PROVIDERS: Surgery; PCP Nurse Practitioner Family; Visit Provider Student in an Organized Health Care Education/Training Program
PROC: 0DJD8ZZ Inspection of Lower Intestinal Tract, Via Natural or Artificial Opening Endoscopic (ICD-10-PCS; CPT 45378; principal; 2022-09-21 07:30)
DX: Z12.11 Encounter for screening for malignant neoplasm of colon (principal); K63.5 Polyp of colon; K62.1 Rectal polyp; K57.30 Diverticulosis of large intestine without perforation or abscess without bleeding; Z94.0 Kidney transplant status; Z86.010 Personal history of colon polyps; N18.6 End stage renal disease; Z85.528 Personal history of other malignant neoplasm of kidney; K63.89 Other specified diseases of intestine
CPT/HCPCS: 45385; 45380; 88305; J0290

== ENCOUNTER 2022-09-23 02:01 | Outpatient (CLI) | payer MEDICARE, SELFPAY ==
[2022-09-23 09:38] LABS: COMMENT (LAB VIEW ONLY) 46.29 mg/dL; PROTEIN 13.8 mg/dL; Prot/Crea Ur Ratio 0.29
[2022-09-23 10:45] LABS: ALT 61 U/L (16-63); AST 34 U/L (15-37); Albumin 3.8 g/dL (3.4-5.0); Alkaline Phosphatase 61 U/L (46-116); Anion Gap 5.9 mmol/L (3-11); BUN 33 mg/dL (7-18); Bilirubin, Total 0.7 mg/dL (0.2-1.0); CO2 29.1 mmol/L (21.0-32.0); Calcium 9.1 mg/dL (8.5-10.1); Chloride 102 mmol/L (98-107); Estimated GFR 38.69 (mL/min/1.73m2); Glucose 131 mg/dL (74-106); Magnesium 1.6 mg/dL (1.8-2.4); PHOSPHORUS 4.1 mg/dL (2.6-4.7); Potassium 4.3 mmol/L (3.5-5.1); Sodium 137 mmol/L (136-145); Total Protein 7.6 g/dL (6.4-8.2); Uric Acid 5.8 mg/dL (3.5-7.2)
[2022-09-23 10:46] LABS: Cholesterol 166 mg/dL (<200)
[2022-09-23 11:01] LABS: Bilirubin Negative (Negative); Blood Negative (Negative); Clarity Clear (Clear); Glucose Negative (Negative); Ketones Negative (Negative); Leukocyte Esterase Negative (Negative); Nitrite Negative (Negative); Urobilinogen 0.2 mg/dL (Up to 0.2)
[2022-09-23 11:13] LABS: HCT 44.4 % (40.0-50.0); HGB 15.3 g/dL (13.5-17.5); MCH 32.1 pg (27.0-33.0); MCHC 34.5 % (32.0-36.0); MCV 93 fL (80-95); MPV 9.8 fL (8.0-11.0); Platelet Count 168 10^3/uL (130-400); RBC 4.76 10^6/uL (4.36-5.78); RDW 13.2 % (11.8-14.1); RDW-SD 45.4 fL; WBC 4.54 10^3/uL (4.4-10.8)
[2022-09-24 13:54] LABS: Tacrolimus 9.1 ng/mL (See Note)
== END 2022-09-23 02:02 | disposition home or self-care (01) ==
LOC: LBO 02:01
PROVIDERS: PCP Nurse Practitioner Family; Visit Provider Internal Medicine Nephrology
DX: Z94.0 Kidney transplant status (principal); Z79.899 Other long term (current) drug therapy; Z29.8 Encounter for other specified prophylactic measures
CPT/HCPCS: 36415; 80053; 85027; 80197; 81003; 82465; 82565; 83735; 84100; 84156; 84550

== ENCOUNTER → 2022-10-11 13:22 | Outpatient (BNVA) | payer MEDICARE, SELFPAY | PROVIDERS: PCP Nurse Practitioner Family; Referring Provider Nurse Practitioner Family; Visit Provider Surgery | DX: K57.30 Diverticulosis of large intestine without perforation or abscess without bleeding (principal); D36.9 Benign neoplasm, unspecified site; K62.1 Rectal polyp; E11.9 Type 2 diabetes mellitus without complications | CPT/HCPCS: 99212; 99213 ==

== ENCOUNTER 2022-12-01 02:51 | Outpatient (CLI) | payer MEDICARE, SELFPAY ==
[2022-12-01 08:54] LABS: Abs Immature Grans 0.04 10^3/uL (0.0-0.06); Absolute Basophil Count 0.03 10^3/uL (0.0-0.2); Absolute Eosinophil Count 0.07 10^3/uL (0.0-0.7); Absolute Lymphocyte Count 1.18 10^3/uL (1.2-3.4); Absolute Monocyte Count 0.62 10^3/uL (0.1-0.8); Basophils % 0.6; Eosinophils % 1.4; HCT 41.2 % (40.0-50.0); HGB 14.3 g/dL (13.5-17.5); Immature Grans % 0.8; Lymphocytes % 23.4; MCH 32.5 pg (27.0-33.0); MCHC 34.7 % (32.0-36.0); MCV 94 fL (80-95); MPV 9.4 fL (8.0-11.0); Monocytes % 12.3; Neutrophils % 61.5; Platelet Count 153 10^3/uL (130-400); RDW 14.2 % (11.8-14.1); RDW-SD 49.1 fL; WBC 5.04 10^3/uL (4.4-10.8)
[2022-12-01 09:24] LABS: Bilirubin Negative (Negative); Blood Negative (Negative); Clarity Clear (Clear); Glucose Negative (Negative); Ketones Negative (Negative); Leukocyte Esterase Negative (Negative); Nitrite Negative (Negative); Specific Gravity <= 1.005 (1.005-1.025); Urobilinogen 0.2 mg/dL (Up to 0.2)
[2022-12-01 10:08] LABS: COMMENT (LAB VIEW ONLY) 17.59 mg/dL
[2022-12-01 10:11] LABS: Cholesterol 164 mg/dL (<200)
[2022-12-01 10:12] LABS: ALT 48 U/L (16-63); AST 25 U/L (15-37); Albumin 3.7 g/dL (3.4-5.0); Alkaline Phosphatase 59 U/L (46-116); Anion Gap 9.2 mmol/L (3-11); BUN 38 mg/dL (7-18); Bilirubin, Total 0.7 mg/dL (0.2-1.0); CO2 25.8 mmol/L (21.0-32.0); CREATININE 1.8 mg/dL (0.70-1.30); Calcium 8.6 mg/dL (8.5-10.1); Chloride 102 mmol/L (98-107); Estimated GFR 43.63 (mL/min/1.73m2); Glucose 129 mg/dL (74-106); Magnesium 1.6 mg/dL (1.8-2.4); PHOSPHORUS 3.5 mg/dL (2.6-4.7); Sodium 137 mmol/L (136-145); Total Protein 7.4 g/dL (6.4-8.2); Uric Acid 6.5 mg/dL (3.5-7.2)
[2022-12-01 10:13] LABS: PROTEIN < 6.0 mg/dL
[2022-12-02 13:26] LABS: Tacrolimus 9.7 ng/mL (See Note)
== END 2022-12-01 02:52 | disposition home or self-care (01) ==
LOC: LBO 02:51
PROVIDERS: PCP Nurse Practitioner Family; Visit Provider Internal Medicine Nephrology
DX: Z94.0 Kidney transplant status (principal); Z79.899 Other long term (current) drug therapy; Z29.8 Encounter for other specified prophylactic measures
CPT/HCPCS: 36415; 80053; 80197; 81003; 82465; 82565; 83735; 84100; 84156; 84550; 85025

== ENCOUNTER → 2023-01-10 12:47 | Outpatient (BNVA) | payer MEDICARE, SELFPAY | PROVIDERS: PCP Nurse Practitioner Family; Referring Provider Nurse Practitioner Family; Visit Provider Nurse Practitioner Gerontology | DX: E29.1 Testicular hypofunction (principal); Z94.0 Kidney transplant status; E11.9 Type 2 diabetes mellitus without complications | CPT/HCPCS: 99214 ==

== ENCOUNTER 2023-01-12 03:43 | Outpatient (CLI) | payer MEDICARE, SELFPAY ==
[2023-01-12 07:44] LABS: Abs Immature Grans 0.04 10^3/uL (0.0-0.06); Absolute Basophil Count 0.02 10^3/uL (0.0-0.2); Absolute Eosinophil Count 0.13 10^3/uL (0.0-0.7); Absolute Lymphocyte Count 1.29 10^3/uL (1.2-3.4); Absolute Neutrophil Count 3.47 10^3/uL (1.2-6.7); Basophils % 0.4; Eosinophils % 2.3; HCT 43.2 % (40.0-50.0); HGB 14.8 g/dL (13.5-17.5); Immature Grans % 0.7; Lymphocytes % 23.2; MCH 32.7 pg (27.0-33.0); MCHC 34.3 % (32.0-36.0); MCV 96 fL (80-95); MPV 9.1 fL (8.0-11.0); Monocytes % 10.8; Neutrophils % 62.6; Platelet Count 165 10^3/uL (130-400); RBC 4.52 10^6/uL (4.36-5.78); RDW 14.3 % (11.8-14.1); RDW-SD 50.3 fL; WBC 5.55 10^3/uL (4.4-10.8)
[2023-01-12 08:00] LABS: COMMENT (LAB VIEW ONLY) 41.81 mg/dL; Prot/Crea Ur Ratio 0.19
[2023-01-12 08:40] LABS: Cholesterol 143 mg/dL (<200)
[2023-01-12 08:45] LABS: Bilirubin Negative (Negative); Blood Negative (Negative); Clarity Clear (Clear); Glucose Negative (Negative); Ketones Negative (Negative); Leukocyte Esterase Negative (Negative); Nitrite Negative (Negative); Specific Gravity 1.015 (1.005-1.025); Urobilinogen 0.2 mg/dL (Up to 0.2)
[2023-01-12 08:54] LABS: ALT 46 U/L (16-63); AST 24 U/L (15-37); Albumin 3.8 g/dL (3.4-5.0); Alkaline Phosphatase 67 U/L (46-116); Anion Gap 8.2 mmol/L (3-11); BUN 29 mg/dL (7-18); Bilirubin, Total 0.7 mg/dL (0.2-1.0); CO2 28.8 mmol/L (21.0-32.0); CREATININE 1.8 mg/dL (0.70-1.30); Calcium 9.3 mg/dL (8.5-10.1); Chloride 101 mmol/L (98-107); Estimated GFR 43.63 (mL/min/1.73m2); Glucose 125 mg/dL (74-106); Magnesium 1.3 mg/dL (1.8-2.4); PHOSPHORUS 4.1 mg/dL (2.6-4.7); Potassium 3.9 mmol/L (3.5-5.1); Sodium 138 mmol/L (136-145); TSH (W/Ref FT4) 3.18 uIU/mL (0.36-3.74); Total Protein 7.5 g/dL (6.4-8.2); Uric Acid 6.5 mg/dL (3.5-7.2)
[2023-01-13 10:26] LABS: PSA, Diagnostic 0.7 ng/mL (<=3.5)
[2023-01-13 13:10] LABS: Tacrolimus 10.1 ng/mL (See Note)
[2023-01-17 16:06] LABS: Testosterone, Total 409 ng/dL (240-950)
== END 2023-01-12 03:44 | disposition home or self-care (01) ==
LOC: LBO 03:43
PROVIDERS: Nurse Practitioner Gerontology; PCP Nurse Practitioner Family; Visit Provider Internal Medicine Nephrology
DX: R35.0 Frequency of micturition (principal); E29.1 Testicular hypofunction; N52.9 Male erectile dysfunction, unspecified; Z94.0 Kidney transplant status; Z79.899 Other long term (current) drug therapy
CPT/HCPCS: 36415; 80053; 84403; 80197; 81003; 82465; 82565; 83735; 84100; 84153; 84156; 84443; 84550; 85025

== ENCOUNTER 2023-02-24 02:19 | Outpatient (CLI) | payer MEDICARE, SELFPAY ==
[2023-02-24 10:29] LABS: Abs Immature Grans 0.03 10^3/uL (0.0-0.06); Absolute Basophil Count 0.03 10^3/uL (0.0-0.2); Absolute Eosinophil Count 0.09 10^3/uL (0.0-0.7); Absolute Lymphocyte Count 1.44 10^3/uL (1.2-3.4); Absolute Monocyte Count 0.63 10^3/uL (0.1-0.8); Basophils % 0.5; Eosinophils % 1.6; HCT 43.5 % (40.0-50.0); HGB 15.3 g/dL (13.5-17.5); Immature Grans % 0.5; Lymphocytes % 25.2; MCH 33.6 pg (27.0-33.0); MCHC 35.2 % (32.0-36.0); MCV 96 fL (80-95); MPV 10.1 fL (8.0-11.0); Neutrophils % 61.2; Platelet Count 181 10^3/uL (130-400); RBC 4.55 10^6/uL (4.36-5.78); RDW 13.9 % (11.8-14.1); RDW-SD 49.1 fL; Reticulocyte 2.7 % (0.5-2.4); WBC 5.72 10^3/uL (4.4-10.8)
[2023-02-24 10:44] LABS: Hemoglobin A1C 6.1 % (<5.7)
[2023-02-24 10:47] LABS: Bilirubin Negative (Negative); Blood Negative (Negative); Clarity Sl Cloudy (Clear); Glucose Negative (Negative); Ketones Negative (Negative); Leukocyte Esterase Negative (Negative); Nitrite Negative (Negative); Urobilinogen 0.2 mg/dL (Up to 0.2)
[2023-02-24 11:00] LABS: ALT 51 U/L (16-63); AST 24 U/L (15-37); Albumin 3.9 g/dL (3.4-5.0); Alkaline Phosphatase 64 U/L (46-116); Anion Gap 10.5 mmol/L (3-11); BUN 27 mg/dL (7-18); Bilirubin, Total 0.8 mg/dL (0.2-1.0); CO2 26.5 mmol/L (21.0-32.0); CREATININE 1.8 mg/dL (0.70-1.30); Calcium 9.2 mg/dL (8.5-10.1); Calculated LDL 75 mg/dL (<100); Chloride 102 mmol/L (98-107); Cholesterol 164 mg/dL (<200); Estimated GFR 43.63 (mL/min/1.73m2); Glucose 116 mg/dL (74-106); HDL Cholesterol 40 mg/dL (40-60); Magnesium 1.6 mg/dL (1.8-2.4); Potassium 4.2 mmol/L (3.5-5.1); Sodium 139 mmol/L (136-145); Total Protein 7.2 g/dL (6.4-8.2); Triglyceride 247 mg/dL (<150)
[2023-02-24 11:10] LABS: PHOSPHORUS 3.9 mg/dL (2.6-4.7); Uric Acid 6.7 mg/dL (3.5-7.2)
[2023-02-24 11:12] LABS: Vitamin D 25 Total 28.5 ng/mL (30-100)
[2023-02-24 11:21] LABS: COMMENT (LAB VIEW ONLY) 100.08 mg/dL; PROTEIN 11.8 mg/dL; Prot/Crea Ur Ratio 0.11
[2023-02-24 19:37] LABS: Parathyroid Hormone,Intact 13 pg/mL (19-88)
[2023-02-25 06:30] LABS: Magnesium Random Urine 8.4 mg/dL (See Note); Phosphorus Urine 52.4 mg/dL (See Note)
[2023-02-25 13:14] LABS: Tacrolimus 10.6 ng/mL (See Note)
[2023-02-27 01:04] LABS: BKV DNA Detect/Quant, U Undetected IU/mL (Undetected)
[2023-03-01 16:30] LABS: 1,25-Dihydroxyvitamin D 17 pg/mL (18-64)
== END 2023-02-24 02:20 | disposition home or self-care (01) ==
LOC: LBO 02:19
PROVIDERS: PCP Nurse Practitioner Family; Visit Provider Internal Medicine Nephrology
DX: E55.9 Vitamin D deficiency, unspecified (principal); Z94.0 Kidney transplant status; Z79.899 Other long term (current) drug therapy; Z29.8 Encounter for other specified prophylactic measures
CPT/HCPCS: 36415; 80053; 80061; 82306; 83735; 87799; 80197; 81003; 82340; 82565; 82652; 83036; 83970; 84100; 84105; 84156; 84550; 85025; 85045

== ENCOUNTER 2023-03-24 01:17 | Outpatient (CLI) | payer MEDICARE, SELFPAY ==
[2023-03-24 09:52] LABS: Abs Immature Grans 0.03 10^3/uL (0.0-0.06); Absolute Basophil Count 0.04 10^3/uL (0.0-0.2); Absolute Lymphocyte Count 1.16 10^3/uL (1.2-3.4); Absolute Neutrophil Count 4.25 10^3/uL (1.2-6.7); Basophils % 0.6; Eosinophils % 1.6; HCT 42.5 % (40.0-50.0); HGB 14.8 g/dL (13.5-17.5); Immature Grans % 0.5; Lymphocytes % 18.8; MCHC 34.8 % (32.0-36.0); MCV 95 fL (80-95); MPV 9.9 fL (8.0-11.0); Monocytes % 9.7; Neutrophils % 68.8; Platelet Count 184 10^3/uL (130-400); RBC 4.49 10^6/uL (4.36-5.78); RDW 13.7 % (11.8-14.1); RDW-SD 47.8 fL; WBC 6.18 10^3/uL (4.4-10.8)
[2023-03-24 09:55] LABS: Bilirubin Negative (Negative); Blood Negative (Negative); Clarity Clear (Clear); Glucose 250 mg/dL (Negative); Ketones Negative (Negative); Leukocyte Esterase Negative (Negative); Nitrite Negative (Negative); Urobilinogen 0.2 mg/dL (Up to 0.2); pH 6.5 (5-8)
[2023-03-24 10:07] LABS: Cholesterol 143 mg/dL (<200)
[2023-03-24 10:33] LABS: COMMENT (LAB VIEW ONLY) 16.28 mg/dL; PROTEIN < 6.0 mg/dL
[2023-03-24 13:43] LABS: ALT 57 U/L (16-63); AST 34 U/L (15-37); Albumin 3.8 g/dL (3.4-5.0); Alkaline Phosphatase 65 U/L (46-116); Anion Gap 7.4 mmol/L (3-11); BUN 28 mg/dL (7-18); Bilirubin, Total 0.8 mg/dL (0.2-1.0); CO2 27.6 mmol/L (21.0-32.0); Chloride 99 mmol/L (98-107); Estimated GFR 38.45 (mL/min/1.73m2); Glucose 214 mg/dL (74-106); Magnesium 1.7 mg/dL (1.8-2.4); Potassium 3.9 mmol/L (3.5-5.1); Sodium 134 mmol/L (136-145); Total Protein 7.8 g/dL (6.4-8.2)
[2023-03-24 14:01] LABS: Uric Acid 6.7 mg/dL (3.5-7.2)
[2023-03-25 11:15] LABS: Tacrolimus 4.7 ng/mL (See Note)
[2023-03-25 15:37] LABS: Toxoplasma Ab, IgG Negative (Negative)
== END 2023-03-24 01:18 | disposition home or self-care (01) ==
LOC: LBO 01:18
PROVIDERS: PCP Nurse Practitioner Family; Visit Provider Internal Medicine Nephrology
DX: Z94.0 Kidney transplant status (principal); Z91.89 Other specified personal risk factors, not elsewhere classified; Z79.899 Other long term (current) drug therapy
CPT/HCPCS: 36415; 80053; 80197; 81003; 82465; 82565; 83735; 84100; 84156; 84550; 85025; 86777

== ENCOUNTER 2023-06-23 03:33 | Outpatient (CLI) | payer MEDICARE, SELFPAY ==
[2023-06-23 10:25] LABS: Bilirubin Negative (Negative); Blood Negative (Negative); Clarity Clear (Clear); Glucose Negative (Negative); Ketones Negative (Negative); Leukocyte Esterase Negative (Negative); Nitrite Negative (Negative); Urobilinogen 0.2 mg/dL (Up to 0.2); pH 6.5 (5-8)
[2023-06-23 10:41] LABS: COMMENT (LAB VIEW ONLY) 45.36 mg/dL; PROTEIN < 6.0 mg/dL
[2023-06-23 10:59] LABS: Abs Immature Grans 0.03 10^3/uL (0.0-0.06); Absolute Basophil Count 0.04 10^3/uL (0.0-0.2); Absolute Eosinophil Count 0.17 10^3/uL (0.0-0.7); Absolute Lymphocyte Count 1.12 10^3/uL (1.2-3.4); Absolute Monocyte Count 0.61 10^3/uL (0.1-0.8); Absolute Neutrophil Count 4.54 10^3/uL (1.2-6.7); Basophils % 0.6; Eosinophils % 2.6; HCT 43.5 % (40.0-50.0); HGB 15.2 g/dL (13.5-17.5); Immature Grans % 0.5; Lymphocytes % 17.2; MCH 33.7 pg (27.0-33.0); MCHC 34.9 % (32.0-36.0); MCV 97 fL (80-95); MPV 9.9 fL (8.0-11.0); Monocytes % 9.4; Neutrophils % 69.7; Platelet Count 196 10^3/uL (130-400); RBC 4.51 10^6/uL (4.36-5.78); RDW 13.6 % (11.8-14.1); RDW-SD 48.5 fL; WBC 6.51 10^3/uL (4.4-10.8)
[2023-06-23 11:10] LABS: ALT 57 U/L (16-63); AST 33 U/L (15-37); Alkaline Phosphatase 68 U/L (46-116); Anion Gap 8.7 mmol/L (3-11); BUN 24 mg/dL (7-18); Bilirubin, Total 0.9 mg/dL (0.2-1.0); CO2 27.3 mmol/L (21.0-32.0); CREATININE 1.9 mg/dL (0.70-1.30); Chloride 101 mmol/L (98-107); Estimated GFR 40.89 (mL/min/1.73m2); Glucose 119 mg/dL (74-106); Magnesium 1.7 mg/dL (1.8-2.4); PHOSPHORUS 3.6 mg/dL (2.6-4.7); Potassium 3.9 mmol/L (3.5-5.1); Sodium 137 mmol/L (136-145); Total Protein 7.3 g/dL (6.4-8.2); Uric Acid 6.5 mg/dL (3.5-7.2)
[2023-06-23 11:28] LABS: Cholesterol 177 mg/dL (<200)
[2023-06-24 13:37] LABS: Tacrolimus 4.4 ng/mL (See Note)
== END 2023-06-23 03:34 | disposition home or self-care (01) ==
LOC: LBO 03:33
PROVIDERS: PCP Nurse Practitioner Family; Visit Provider Internal Medicine Nephrology
DX: Z94.0 Kidney transplant status (principal); Z94.83 Pancreas transplant status; Z79.899 Other long term (current) drug therapy
CPT/HCPCS: 36415; 80053; 80197; 81003; 82465; 82565; 83735; 84100; 84156; 84550; 85025

== ENCOUNTER 2023-10-05 05:04 | Outpatient (CLI) | payer MEDICARE, SELFPAY ==
[2023-10-05 07:46] LABS: Bilirubin Negative (Negative); Blood Negative (Negative); Clarity Clear (Clear); Glucose Negative (Negative); Ketones Negative (Negative); Leukocyte Esterase Negative (Negative); Nitrite Negative (Negative); Urobilinogen 0.2 mg/dL (Up to 0.2); pH 6.5 (5-8)
[2023-10-05 07:47] LABS: Abs Immature Grans 0.02 10^3/uL (0.0-0.06); Absolute Basophil Count 0.04 10^3/uL (0.0-0.2); Absolute Eosinophil Count 0.15 10^3/uL (0.0-0.7); Absolute Monocyte Count 0.63 10^3/uL (0.1-0.8); Absolute Neutrophil Count 4.22 10^3/uL (1.2-6.7); Basophils % 0.6; Eosinophils % 2.4; HGB 14.9 g/dL (13.5-17.5); Immature Grans % 0.3; Lymphocytes % 19.2; MCH 33.1 pg (27.0-33.0); MCHC 34.7 % (32.0-36.0); MCV 96 fL (80-95); MPV 9.1 fL (8.0-11.0); Monocytes % 10.1; Neutrophils % 67.4; Platelet Count 191 10^3/uL (130-400); RDW 13.2 % (11.8-14.1); RDW-SD 46.8 fL; WBC 6.26 10^3/uL (4.4-10.8)
[2023-10-05 08:53] LABS: ALT 41 U/L (16-63); AST 24 U/L (15-37); Albumin 3.7 g/dL (3.4-5.0); Alkaline Phosphatase 71 U/L (46-116); Anion Gap 9.9 mmol/L (3-11); BUN 25 mg/dL (7-18); Bilirubin, Total 0.9 mg/dL (0.2-1.0); CO2 27.1 mmol/L (21.0-32.0); CREATININE 1.6 mg/dL (0.70-1.30); Chloride 100 mmol/L (98-107); Estimated GFR 50.26 (mL/min/1.73m2); Glucose 135 mg/dL (74-106); Magnesium 1.7 mg/dL (1.8-2.4); PHOSPHORUS 3.5 mg/dL (2.6-4.7); Potassium 3.9 mmol/L (3.5-5.1); Sodium 137 mmol/L (136-145); Total Protein 7.5 g/dL (6.4-8.2); Uric Acid 5.8 mg/dL (3.5-7.2)
[2023-10-05 08:58] LABS: Calcium 8.7 mg/dL (8.5-10.1)
[2023-10-06 13:56] LABS: Tacrolimus 4.9 ng/mL (See Note)
[2023-10-06 18:54] LABS: COMMENT (LAB VIEW ONLY) 13.88 mg/dL; PROTEIN < 6.0 mg/dL
[2023-10-06 18:59] LABS: Cholesterol 150 mg/dL (<200)
== END 2023-10-05 05:05 | disposition home or self-care (01) ==
LOC: LBO 05:05
PROVIDERS: PCP Nurse Practitioner Family; Visit Provider Internal Medicine Nephrology
DX: Z94.0 Kidney transplant status (principal); Z94.83 Pancreas transplant status; Z79.899 Other long term (current) drug therapy
CPT/HCPCS: 36415; 80053; 80197; 81003; 82465; 82565; 83735; 84100; 84156; 84550; 85025

== ENCOUNTER → 2023-12-05 13:06 | Outpatient (BNVA) | payer MEDICARE, SELFPAY | PROVIDERS: PCP Nurse Practitioner Family; Referring Provider Nurse Practitioner Family; Visit Provider Surgery | DX: L72.3 Sebaceous cyst (principal); K62.1 Rectal polyp; K57.30 Diverticulosis of large intestine without perforation or abscess without bleeding; Z68.41 Body mass index [BMI] 40.0-44.9, adult; Z98.84 Bariatric surgery status; Z79.4 Long term (current) use of insulin | CPT/HCPCS: 99214 ==

== ENCOUNTER 2023-12-27 08:51 | Day surgery (SDC) | payer MEDICARE, SELFPAY ==
--- NOTE | 2023-12-26 21:50 | COLE_ITS ---
Date of service: 12/27/23 Time of Service: 10:36 Colonoscopy Report Date of procedure: 12/27/23 Pre-op diagnosis general: villous adenoma Post-op diagnosis procedure note: other (Rangel diverticula and adenomatous polyp) Surgeon: Tammie Tiwari Anesthesia Type: General:No Airway Estimated blood loss (mL): 1 Pathology: other Complications: None Disposition: same day Prep: Miralax/Dulcolax Retraction Time: 15 Procedure Description: After informed consent was obtained the patient was taken to the procedure room and placed in a left decubitous position. Monitors were applied and a time out was done. The patients name, date of , procedure, allergies to medications and metal in their body was reviewed. The patient was then sedated. Once sedated and comfortable a rectal exam was done. External exam was normal. Inte rnal exam revealed a normal sphincter tone and no palpable masses. The prostate- not palpable The scope was then introduced and retrofelexed. No internal hemorrhoids were identified. The scope was then advanced to the cecum without difficulty. The TI and appendiceal orifice were identified. The scope was then slowly retracted over 15 minutes back into the rectum. He has rangel diverticula that extend all the way over to the cecum. There is no signs of active bleeding or infection. He has a small flat 5 mm polyp at 70 cm that is removed with cold biting forcep. All specimen is retrieved and no bleeding is noted. No signs of any recurrence at the anal sphincters. The scope was removed and the patient was woken up and taken back to Same day surgery in stable condition. The patient tolerated the procedure well and there were no immediate complications. Follow up: The patient should follow up in 3-5 years unless they develop changes in bowel habits or other new gastrointestinal complaints. Republic Bowel Prep Republic Bowel Prep Right Colon: 2 Left Colon: 2 Transverse Colon: 2 Total Score: 6
--- NOTE | 2023-12-26 21:51 | PDOC.DSDIS_ITS ---
Date of service: 12/26/23 Time of Service: 10:39 Discharge Plan Disposition Patient Disposition: Home Condition: Good Discharge Details Reason For Visit: colon scope and Attending Provider: Tammie Tiwari Primary Care Provider: Deandre Herring Home Meds and New Rx's Prescriptions: No Action triamcinolone acetonide 0.1 % cream 1 applic topical BID Qty: 30 1RF calcium carbonate [Oyster Shell Calcium] 500 mg calcium (1,250 mg) tablet 500 mg PO BID tacrolimus 1 mg capsule,extended release 24hr 2 mg PO QAM Rx Instructions: must administer in the morning on an empty stomach, 1 hour before or 2 hours after a meal allopurinol 200 mg tablet 200 mg PO DAILY (DME) lancets Misc See Rx Instructions .MEDSUPPLY Qty: 200 3RF Rx Instructions: FREE STYLE/ Use as directed to check daily blood glucose. Db type 2 Insulin dependent tadalafil [Cialis] 20 mg tablet 20 mg PO DAILY PRN (Reason: sexual activity) Qty: 10 1RF Rx Instructions: administer approximately 30min before sexual activity; do not use more than 1 dose per 24hrs semaglutide 2 mg/dose (8 mg/3 mL) pen injector 2 mg subcut QWEEK Qty: 9 3RF (DME) pen needle, diabetic 31 gauge x 1/3 needle 1 ea Sub-Q BID Qty: 100 5RF Rx Instructions: INSULIN PEN NEEEDLE 31G X 3/16 B/D QID insulin lispro [Humalog KwikPen Insulin] 100 unit/mL insulin pen 35 unit SC TID Qty: 94.5 3RF (DME) FreeStyle Lite Strips Strip 1 ea Miscellaneous TID Qty: 300 3RF Rx Instructions: Test 3 times a day gabapentin 100 mg capsule 300 mg PO QHS Qty: 270 4RF Rx Instructions: 3 caps at bedtime peg 3350-electrolytes [Golytely] 236-22.74-6.74 -5.86 gram recon soln 240 ml PO Q10M Qty: 4000 0RF Rx Instructions: drink all as instructed peg 3350-electrolytes [Golytely] 236-22.74-6.74 -5.86 gram recon soln 240 ml PO Q10M Qty: 4000 0RF Rx Instructions: until fecal effluent is clear atorvastatin 20 mg Tablet 20 mg PO DAILY aspirin 81 mg Tablet,Delayed Release (Dr/Ec) 81 mg PO DAILY tolterodine 2 mg Tablet 2 mg PO DAILY tamsulosin 0.4 mg Capsule 0.4 mg PO DAILY diltiazem HCl 120 mg Capsule,Extended Release 24 Hr 120 mg PO DAILY acetaminophen 500 mg tablet 1,000 mg PO TID Qty: 90 0RF calcitriol 0.5 mcg Capsule 0.5 mcg PO BID insulin glargine [Lantus Solostar U-100 Insulin] 100 unit/mL (3 mL) insulin pen 30 unit subcut BID Discharge Instructions Additional Instructions: [facility] Colonoscopy Post- Op Instructions Instructions for Everyone who is given Anesthesia: For your safety, please do the following for the next twenty-four (24) hours: *Do Not operate a motor vehicle (car, truck, motorcycle, etc.) *Do Not drink alcoholic beverages or use any recreational drugs for the first 24 hours or while taking pain medications. The medications in your body may have a reaction that can be dangerous. *Do Not make any important decisions or sign any important papers. Findings: Correa diverticula-make sure you are moving your bowels on a regular basis and not straining. If you find you have problems with chronic constipation/straining, then it is recommended you start a fiber product such as Metamucil. X 1 polyp Follow up: My office will send you a letter in 2 to 3 weeks time with the results of the pathology and when we want you to repeat the colonoscopy, most likely in 3 years time. 1. No lifting over 20 pounds or strenuous activity for the first 24 hours after your procedure. After 24 hours there are no restrictions on your activity but you may feel fatigued for a few days. 2. After you arrive home you may have a light meal and return to your normal diet as you can tolerate it without feeling sick to your stomach. 3. You may have a bloated, gaseous feeling in your belly (abdomen) after a colonoscopy. Passing gas and belching will help. Walking or lying down on your l eft side with your knees flexed may relieve the discomfort. Call the office at [phone] (Office) or [phone] (Hospital) right away if you notice any of the following: a.Vomiting of blood or ?coffee ground stools?. b.Rectal bleeding 1Tbsp, blood clots or continuous bleeding. c.Severe belly (abdominal) pain. d.A hard distended belly (abdomen) and an inability to pass gas. 4. Please don?t expect to have a normal BM (bowel movement) for 2-3 days after your procedure. 5. If there are questions regarding the findings of your procedure, please contact your doctor 6. If you are unable to contact your doctor with a problem, contact the hospital at [phone]. 7. Continue all your regular medications unless directed otherwise. I understand the above instructions and have no questions. Signature of Patient or Adult Escort Name of Responsible Adult Escort Signature of Nurse Date/Time Stand Alone Forms: Anesthesia Discharge Inst., Trudy Galeas ([facility]) Activity:: see above Diet:: Carb Counting Discharge Orders Discharge Orders: Discharge Order (Routine); Ordered 12/27/23 Ordered By: Tammie Tiwari DS: Diagnosis Discharge Diagnosis (1) Essential hypertension: Status: Acute (2) Hyperlipidemia: Status: Acute (3) Diabetes mellitus: Status: Acute (4) Diabetic autonomic neuropathy associated with type 2 diabetes mellitus: Status: Acute (5) Charcot's joint of foot in type 2 diabetes mellitus: Status: Acute (6) Diabetes mellitus type 2 in obese: Status: Acute (7) Type 2 diabetes with neural complication: Status: Acute (8) Controlled diabetes mellitus with kidney complication: Status: Acute (9) Secondary hyperparathyroidism: Status: Acute (10) Obesity: Status: Acute (11) Status post laparoscopic sleeve gastrectomy: Status: Chronic (12) BMI 40.0-44.9, adult: Status: Acute (13) Proliferative diabetic retinopathy: Status: Acute (14) Diabetic retinopathy: Status: Acute (15) Tubular adenoma of colon: Status: Acute Asessment and Plan: The patient is seen and examined after their colonoscopy.? The patient has been able to pass gas.? They are not having abdominal pain.? They have been able to tolerate liquids and a snack.? They do not have any nausea or vomiting.? They are not having any chest pain or shortness of breath.??? They are not having any rectal bleeding. Their vital signs have been stable-see nursing notes. We discussed findings during their colonoscopy, and any biopsies that were done/polyps that were removed. The patient will be sent a letter with any biopsy results, and when to repeat the colonoscopy.-see discharge instructions. Patient was given explicit instructions to follow-up regarding colonoscopy-refer to discharge instructions.? We reviewed resumption of medications. Patient verbalized understanding and discharged in stable and satisfactory condition- See nursing notes. (16) Diverticula of colon: Status: Acute (17) Renal transplant, status post: Status: Acute (18) Primary malignant neoplasm of kidney: Status: Acute (19) Adenomatous polyps: Status: Acute (20) CMV (cytomegalovirus) status positive: Status: Acute (21) Immunosuppression due to drug therapy: Status: Acute (22) Primary fibromyalgia syndrome: Status: Acute (23) Peripheral neuropathy: Status: Acute (24) PRETTY treated with BiPAP: Status: Acute (25) Former smoker: Status: Acute (26) Hx of kidney transplant: Status: Acute
[2023-12-27 08:57] VITALS: BP 141/69; PULSE 82; RESP 16; TEMP 36.7; O2SAT 97
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
[2023-12-27 09:27] VITALS: BMI 38.8
[2023-12-27] MEDS: Lactated Ringers 1,000 ML 80 ML IV (09:29)
--- NOTE | 2023-12-27 10:21 | BOWEL_PTH ---
PATIENT: Cl Alba LOC: [facility] U#:[id number] AGE/SX: 58/M ROOM: RE12/27/[address]: Tammie Tiwari : 1965 BED: DIS: 12/27/2023 SPEC #: [id number] RECD: 12/27/23 12:46 STATUS: JIL REQ #: [id number] DAHIANA: 12/27/23 10:[address]: Tammie Tiwari DEPT: Surgical Specimen RECD BY: Mary Jane Guzman ENTERED: 12/27/23 12:47 SP TYPE: Bowel OTHR DR: Deandre Herring, FEATHER BALER Tissues: 1 - BIOPSY BOWEL Procedures: GROSS AND MICRO LEVEL 4 Comments: [id number]
[2023-12-27 10:33] VITALS: BP 98/36; PULSE 74; RESP 16; TEMP 36; O2SAT 95
--- NOTE | 2023-12-27 10:43 | W.ANESPOSTOP ---
Postoperative Evaluation Date, Time and Location Date Performed: 12/27/23 Time Performed: 10:43 Patient Location: Day Surgery Unit Vital Signs Most Recent Imported Vital Signs: Most Recent Vital Signs Temp Pulse Resp BP Pulse Ox 36 C L 74 16 98/36 L 95 12/27/23 10:33 12/27/23 10:33 12/27/23 10:33 12/27/23 10:33 12/27/23 10:33 Pain Score Most Recent Pain Score: Most Recent Pain Score Pain Level 0 12/27/23 10:33 Assessment Mental Status: Awake (Alert & Oriented to Patient Baseline) Airway and Respiratory Function: Patent airway with normal (patient baseline) respiratory exam Cardiovascular Function: Hemodynamically Stable Hydration Status: Adequately Hydrated Nausea & Vomiting: No Nausea or Vomiting Pain: Pt. Denies Any Pain Peripheral Nerve Block: Patient did not receive a nerve block
[2023-12-27 11:05] VITALS: BP 127/56; PULSE 70; RESP 16; TEMP 36.2; O2SAT 97
== END 2023-12-27 11:23 | disposition home or self-care (01) ==
LOC: SUR 08:51
PROVIDERS: PCP Nurse Practitioner Family; Visit Provider Surgery
PROC: 0DJD8ZZ Inspection of Lower Intestinal Tract, Via Natural or Artificial Opening Endoscopic (ICD-10-PCS; CPT 45378; principal; 2023-12-27 09:30)
DX: Z12.11 Encounter for screening for malignant neoplasm of colon (principal); K57.30 Diverticulosis of large intestine without perforation or abscess without bleeding; K63.5 Polyp of colon; I10 Essential (primary) hypertension
CPT/HCPCS: 45385; 88305; J2704

== ENCOUNTER → 2024-01-09 09:20 | Outpatient (BNVA) | payer MEDICARE, SELFPAY | PROVIDERS: PCP Nurse Practitioner Family; Referring Provider Nurse Practitioner Family; Visit Provider Surgery | DX: L72.3 Sebaceous cyst (principal) | CPT/HCPCS: 99213 ==

== ENCOUNTER 2024-01-16 03:16 | Outpatient (CLI) | payer MEDICARE, SELFPAY ==
[2024-01-16 08:04] LABS: HCT 44.4 % (40.0-50.0); HGB 15.1 g/dL (13.5-17.5); MCH 33.2 pg (27.0-33.0); MCV 98 fL (80-95); MPV 9.7 fL (8.0-11.0); Platelet Count 158 10^3/uL (130-400); RBC 4.55 10^6/uL (4.36-5.78); RDW 13.6 % (11.8-14.1); Reticulocyte 2.2 % (0.5-2.4); WBC 5.36 10^3/uL (4.4-10.8)
[2024-01-16 08:18] LABS: Bilirubin Negative (Negative); Blood Negative (Negative); Clarity Clear (Clear); Glucose Negative (Negative); Ketones Negative (Negative); Leukocyte Esterase Negative (Negative); Nitrite Negative (Negative); Urobilinogen 0.2 mg/dL (Up to 0.2); pH 6.5 (5-8)
[2024-01-16 08:40] LABS: Creatinine,Urine 69.67 mg/dL
[2024-01-16 08:41] LABS: PROTEIN 17.1 mg/dL; Prot/Crea Ur Ratio 0.23
[2024-01-16 08:48] LABS: ALT 45 U/L (16-63); AST 23 U/L (15-37); Albumin 3.7 g/dL (3.4-5.0); Alkaline Phosphatase 77 U/L (46-116); Anion Gap 7.9 mmol/L (3-11); BUN 24 mg/dL (7-18); Bilirubin, Total 0.85 mg/dL (0.2-1.0); CO2 27.1 mmol/L (21.0-32.0); CREATININE 1.6 mg/dL (0.70-1.30); Calcium 8.9 mg/dL (8.5-10.1); Calculated LDL 48 mg/dL (<100); Chloride 103 mmol/L (98-107); Cholesterol 138 mg/dL (<200); Estimated GFR 49.94 (mL/min/1.73m2); Glucose 233 mg/dL (74-106); HDL Cholesterol 40 mg/dL (40-60); Magnesium 1.8 mg/dL (1.8-2.4); Sodium 138 mmol/L (136-145); Total Protein 7.3 g/dL (6.4-8.2); Triglyceride 252 mg/dL (<150)
[2024-01-16 09:07] LABS: Vitamin D 25 Total 22.7 ng/mL (30-100)
[2024-01-16 11:48] LABS: PHOSPHORUS 3.7 mg/dL (2.6-4.7)
[2024-01-16 17:31] LABS: Parathyroid Hormone,Intact 41 pg/mL (19-88)
[2024-01-17 09:26] LABS: Tacrolimus 5.1 ng/mL (See Note)
[2024-01-17 10:33] LABS: Calcium (Random Urine) 9.5 mg/dL (See Note); Magnesium Random Urine 6.3 mg/dL (See Note); Phosphorus Urine 54.7 mg/dL (See Note)
[2024-01-17 17:56] LABS: Hemoglobin A1C 6.4 % (<5.7)
[2024-01-17 22:35] LABS: BKV DNA Detect/Quant, U Undetected IU/mL (Undetected)
[2024-01-20 11:33] LABS: Uric Acid 6.1 mg/dL (3.9-9.0)
[2024-01-25 10:32] LABS: 1,25-Dihydroxyvitamin D 16 pg/mL (18-64)
== END 2024-01-16 03:17 | disposition home or self-care (01) ==
PROVIDERS: PCP Nurse Practitioner Family; Visit Provider Nurse Practitioner Family
DX: Z94.0 Kidney transplant status (principal); Z79.899 Other long term (current) drug therapy; E55.9 Vitamin D deficiency, unspecified
CPT/HCPCS: 36415; 80053; 80061; 82306; 83735; 85027; 87799; 80197; 81003; 82340; 82565; 82652; 83036; 83970; 84100; 84105; 84156; 84550; 85045

== ENCOUNTER 2024-02-21 11:40 | Day surgery (SDC) | payer MEDICARE, SELFPAY ==
--- NOTE | 2024-02-20 12:52 | W.PM.DSUDISC ---
Date of service: 02/21/24 Time of Service: 15:08 Discharge Plan Disposition Patient Disposition: Home Condition: Good Discharge Details Reason For Visit: cyst removal Attending Provider: Tammie Tiwari Primary Care Provider: Deandre Herring Home Meds and New Rx's Prescriptions: New tramadol 50 mg tablet 50 mg PO Q4H PRNQty: 7 0RF Continued triamcinolone acetonide 0.1 % cream 1 applic topical BID Qty: 30 1RF calcium carbonate [Oyster Shell Calcium] 500 mg calcium (1,250 mg) tablet 500 mg PO BID tacrolimus 1 mg capsule,extended release 24hr 2 mg PO QAM Rx Instructions: must administer in the morning on an empty stomach, 1 hour before or 2 hours after a meal allopurinol 200 mg tablet 200 mg PO DAILY (DME) lancets Misc See Rx Instructions .MEDSUPPLY Qty: 200 3RF Rx Instructions: FREE STYLE/ Use as directed to check daily blood glucose. Db type 2 Insulin dependent tadalafil [Cialis] 20 mg tablet 20 mg PO DAILY PRN (Reason: sexual activity) Qty: 10 1RF Rx Instructions: administer approximately 30min before sexual activity; do not use more than 1 dose per 24hrs semaglutide 2 mg/dose (8 mg/3 mL) pen injector 2 mg subcut QWEEK Qty: 9 3RF (DME) pen needle, diabetic 31 gauge x 1/3 needle 1 ea Sub-Q BID Qty: 100 5RF Rx Instructions: INSULIN PEN NEEEDLE 31G X 3/16 B/D QID insulin lispro [Humalog KwikPen Insulin] 100 unit/mL insulin pen 35 unit SC TID Qty: 94.5 3RF (DME) FreeStyle Lite Strips Strip 1 ea Miscellaneous TID Qty: 300 3RF Rx Instructions: Test 3 times a day gabapentin 100 mg capsule 300 mg PO QHS Qty: 270 4RF Rx Instructions: 3 caps at bedtime atorvastatin 20 mg Tablet 20 mg PO DAILY aspirin 81 mg Tablet,Delayed Release (Dr/Ec) 81 mg PO DAILY tolterodine 2 mg Tablet 2 mg PO DAILY tamsulosin 0.4 mg Capsule 0.4 mg PO DAILY diltiazem HCl 120 mg Capsule,Extended Release 24 Hr 120 mg PO DAILY acetaminophen 500 mg tablet 1,000 mg PO TID Qty: 90 0RF calcitriol 0.5 mcg Capsule 0.5 mcg PO BID insulin glargine [Lantus Solostar U-100 Insulin] 100 unit/mL (3 mL) insulin pen 30 unit subcut BID Discharge Instructions Additional Instructions: Wound Care Instruction Pain Control Use ice!? Ice keeps the swelling down and swelling is what causes pain.? Never apply ice directly to the skin.? Wrap it in a towel or cloth.? Apply ice 20 minutes on and 20 minutes off for pain control.? Use as needed. Take Tylenol 500 mg by mouth with food every 4 hours as needed for pain. Do not take Tylenol if you have a history of heavy drinking, hepatitis C or liver problems.? Always wash your hands before touching your incision. ? Keep the incision clean, dry, and out of water, keep the incision out of water. ? Do not to pick at the scabs. Scabs help protect the wound. ? You can take a shower in 24 hours and wash the incision with soap and water. Pat dry/don?t scrub. It?s OK to wash around the incision. But don?t spray water directly on it. ? Pat stitches dry if they get wet. Don't rub. ? Check the incision site daily for pain, redness, drainage, swelling, or separation of the incision edges. ? Make sure any clothing that touches the incision is loose-fitting. This will prevent rubbing. As your incision heals, the skin may appear pink or red. It may also feel slightly bumpy or raised. This is called a healing ridge. Over time, the color should fade and the raised skin will become less noticeable. When to seek medical care Call your healthcare provider right away if you have any of these: ? More pain, redness, swelling, bleeding, or foul-smelling discharge around the incision area ? Fever of 101?F (38.3?C) or higher, or as directed by your child's healthcare provider ? Shaking chills ? Vomiting or nausea that doesn?t go away ? Numbness, coldness, or tingling around the incision area, or changes in skin color ? Opening of the sutures or wound -Stitches or mathew that come apart or fall out or surgical tape falls off before 7 days, or as directed by your healthcare provider ?[facility]: [phone] Stand Alone Forms: Trudy Galeas (DSU) Activity:: See above Remove Dressings/Wound Care:: 24 hours Shower/Bathe:: 24 hours Diet:: Carb Counting Discharge Orders Discharge Orders: Discharge Order (Routine); Ordered 02/21/24 Ordered By: Tammie Tiwari DS: Diagnosis Discharge Diagnosis (1) Essential hypertension: Status: Acute (2) Hyperlipidemia: Status: Acute (3) Diabetes mellitus: Status: Acute (4) Diabetic autonomic neuropathy associated with type 2 diabetes mellitus: Status: Acute (5) Charcot's joint of foot in type 2 diabetes mellitus: Status: Acute (6) Diabetes mellitus type 2 in obese: Status: Acute (7) Type 2 diabetes with neural complication: Status: Acute (8) Controlled diabetes mellitus with kidney complication: Status: Acute (9) Secondary hyperparathyroidism: Status: Acute (10) Obesity: Status: Acute (11) Status post laparoscopic sleeve gastrectomy: Status: Chronic (12) BMI 40.0-44.9, adult: Status: Acute (13) Proliferative diabetic retinopathy: Status: Acute (14) Diabetic retinopathy: Status: Acute (15) Renal transplant, status post: Status: Acute (16) Hx of kidney transplant: Status: Acute (17) Primary malignant neoplasm of kidney: Status: Acute (18) Immunosuppression due to drug therapy: Status: Acute (19) PRETTY treated with BiPAP: Status: Acute (20) Sebaceous cyst: Status: Acute Asessment and Plan: The patient is doing well post-op from their [] surgery.? They are having no nausea or vomiting. They are tolerating liquids and a snack. The pt is not having any chest pain or SOB.? Their pain is adequately controlled. They have been able to urinate.? ?HEENT:? no eye pain/drainage/redness/swelling. Mild sore throat ?Cardio- NSR, no chest pain, BP stable- see VS record ?Pulm: no sob or productive cough. No hemoptysis ?Incision- dressing is c/d/i w/ no excessive bleeding or drainage ?I discussed with the patient the findings at the time of surgery and the patient?s progress. ?We reviewed expectations at home; what the patient could expect for recovery time, and in the post-operative period.? We discussed the importance of walking to avoid blood clots and pneumonia.? We discussed and reviewed the patient's post-operative wound care and dressing needs.?? We reviewed their step-ferro pain management plan, Rx called to the pharmacy of their choice.? We reviewed activity and limitations-see discharge instructions. We reviewed warning signs, and when to seek medical attention- see d/c instructions.?? Patient was given a postoperative follow-up appointment. Patient verbalized understanding of their postoperative instructions, how do to take care of themselves and their incision, and the pain management plan. Please see discharge instructions.? (21) Former smoker: Status: Acute
[2024-02-21] MEDS: Lidocaine/Prilocaine Cream 5 GM TUBE TP (11:50)
[2024-02-21 12:16] VITALS: BP 134/64; PULSE 82; RESP 18; TEMP 36.5; O2SAT 97
[2024-02-21] MEDS: Gabapentin 300 MG CAP 600 MG PO (12:23)
[2024-02-21] MEDS: Cephalexin 500 MG CAP 1000 MG PO (12:23)
[2024-02-21] MEDS: Acetaminophen 500 MG TAB 1000 MG PO (12:23)
--- NOTE | 2024-02-21 15:11 | W.PM.OP ---
Date of service: 02/21/24 Time of Service: 15:11 Operative Note Operative Note DATE OF PROCEDURE: 02/21/24 PRE-OP DIAGNOSIS: Recurrent sebaceous cyst POST-OP DIAGNOSIS: same PROCEDURE: Excision of recurrent sebaceous cyst SURGEON: Tammie Tiwari ANESTHESIA TYPE: Local By Surgeon Refer to Anesthesia Record ESTIMATED BLOOD LOSS: 5 PATHOLOGY: other COMPLICATIONS: None Patient was transported to: same day Procedure Description: ASSESSMENT: The lesion is _4 Cm in size. Differential diagnosis includes:_seb cyst Location: mid upper back Procedural Sedation 1% buffered lidocaine _60cc Technique Patient appears well. Vitals are normal. The patient has no allergies to lidocaine or suture material. The patient not on any blood thinners. The pt has no history of keloids or problems with healing in the past. Skin: see HPI Informed consent was obtained prior to beginning the procedure. The area was marked and doubled checked/ID?ed with the pt. PAUSE for the CAUSE completed. The risks of lesion removal include but are not limited to: bleeding, infection, scarring, reoccurrence, and the need for removal of more tissue, and complications of anesthesia. After informed consent was obtained, using Chloroprep for cleansing and 1% Buffered Lidocaine for anesthetic; using sterile technique, PROCEDURE:_Excision of sebaceous cyst. Was performed. The lesion is _4 cm in size. The incision was _3 Cm long. The skin is undermined. Deep tissues closed with 3-0 Vicryl. The incision is closed w/ interrupted sutures of 2-0 prolene. An Antibiotic salve and sterile dressing is applied, and wound care instructions provided. The procedure was well tolerated without complications. Plan: The patient will follow up in 10 days for suture removal and review of pathology. If there is any bleeding/redness/drainage/swelling/pain or tenderness- call the clinic. Patient was given instructions in wound care, activity, warning signs, appointment for follow up. If the patient has any questions or concerns, should call our clinic or go to ER/urgent care after hours. Patient expressed understanding in directions for care and was given a written copy of instructions. [facility], if appropriate Pt tolerated the procedure well without complications Patient was given instruction in activity restrictions, wound care and dressing changes. Medication usage, diet, warning signs to look for (and what to do if they occur), and an appointment for follow-up.
[2024-02-21] MEDS: Bupivacaine 0.5% Pres-Free W/EPI 30 ML VIAL ×2 (15:48→16:28)
[2024-02-21 16:37] VITALS: BP 135/61; PULSE 88; RESP 18; TEMP 36.4; O2SAT 98
== END 2024-02-21 17:10 | disposition home or self-care (01) ==
LOC: SUR 11:40
PROVIDERS: PCP Nurse Practitioner Family; Visit Provider Surgery
PROC: (CPT 11404; principal; 2024-02-21 13:00)
DX: L72.3 Sebaceous cyst (principal)
CPT/HCPCS: 11404; 12032

== ENCOUNTER → 2024-03-05 07:59 | Outpatient (BNVA) | payer MEDICARE, SELFPAY | PROVIDERS: PCP Nurse Practitioner Family; Referring Provider Nurse Practitioner Family; Visit Provider Physical Therapy Assistant | DX: Z48.817 Encounter for surgical aftercare following surgery on the skin and subcutaneous tissue (principal); Z48.02 Encounter for removal of sutures ==

== ENCOUNTER → 2024-03-08 07:18 | Outpatient (BNVA) | payer MEDICARE, SELFPAY | PROVIDERS: PCP Nurse Practitioner Family; Referring Provider Nurse Practitioner Family; Visit Provider Physical Therapy Assistant | DX: Z48.817 Encounter for surgical aftercare following surgery on the skin and subcutaneous tissue (principal); Z48.02 Encounter for removal of sutures ==

== ENCOUNTER → 2024-03-12 07:54 | Outpatient (BNVA) | payer MEDICARE, SELFPAY | PROVIDERS: PCP Nurse Practitioner Family; Referring Provider Nurse Practitioner Family; Visit Provider Surgery | DX: Z48.817 Encounter for surgical aftercare following surgery on the skin and subcutaneous tissue (principal); Z48.02 Encounter for removal of sutures ==

== ENCOUNTER 2024-05-04 02:38 | Outpatient (CLI) | payer MEDICARE, SELFPAY ==
[2024-05-04 09:02] LABS: Abs Immature Grans 0.02 10^3/uL (0.0-0.06); Absolute Basophil Count 0.02 10^3/uL (0.0-0.2); Absolute Eosinophil Count 0.16 10^3/uL (0.0-0.7); Absolute Lymphocyte Count 1.11 10^3/uL (1.2-3.4); Absolute Monocyte Count 0.54 10^3/uL (0.1-0.8); Absolute Neutrophil Count 4.33 10^3/uL (1.2-6.7); Basophils % 0.3 %; Eosinophils % 2.6 %; HCT 43.9 % (40.0-50.0); HGB 15.1 g/dL (13.5-17.5); Immature Grans % 0.3 %; MCH 32.5 pg (27.0-33.0); MCHC 34.4 % (32.0-36.0); MCV 94 fL (80-95); MPV 9.1 fL (8.0-11.0); Monocytes % 8.7 %; Neutrophils % 70.1 %; Platelet Count 173 10^3/uL (130-400); RBC 4.65 10^6/uL (4.36-5.78); RDW 13.2 % (11.8-14.1); RDW-SD 45.6 fL; WBC 6.18 10^3/uL (4.4-10.8)
[2024-05-04 09:11] LABS: Bilirubin Negative (Negative); Blood Negative (Negative); Clarity Clear (Clear); Glucose Negative (Negative); Ketones Negative (Negative); Leukocyte Esterase Negative (Negative); Nitrite Negative (Negative); Urobilinogen 0.2 mg/dL (Up to 0.2)
[2024-05-04 09:57] LABS: COMMENT (LAB VIEW ONLY) 25.41 mg/dL; PROTEIN < 6.0 mg/dL
[2024-05-04 10:02] LABS: ALT 48 U/L (16-63); AST 28 U/L (15-37); Albumin 4.1 g/dL (3.4-5.0); Alkaline Phosphatase 70 U/L (46-116); Anion Gap 10.4 mmol/L (3-11); BUN 20 mg/dL (7-18); Bilirubin, Total 1.07 mg/dL (0.2-1.0); CO2 25.6 mmol/L (21.0-32.0); CREATININE 1.7 mg/dL (0.70-1.30); Calcium 8.9 mg/dL (8.5-10.1); Chloride 104 mmol/L (98-107); Estimated GFR 46.44 (mL/min/1.73m2); Glucose 151 mg/dL (74-106); Magnesium 1.7 mg/dL (1.8-2.4); PHOSPHORUS 3.1 mg/dL (2.6-4.7); Potassium 3.9 mmol/L (3.5-5.1); Sodium 140 mmol/L (136-145); Total Protein 7.8 g/dL (6.4-8.2); Uric Acid 5.8 mg/dL (3.5-7.2)
[2024-05-04 10:16] LABS: Cholesterol 151 mg/dL (<200)
[2024-05-05 11:51] LABS: Tacrolimus 6.1 ng/mL (See Note)
== END 2024-05-04 02:39 | disposition home or self-care (01) ==
PROVIDERS: PCP Nurse Practitioner Family; Visit Provider Nurse Practitioner Family
DX: Z94.0 Kidney transplant status (principal)
CPT/HCPCS: 36415; 80053; 80197; 81003; 82465; 82565; 83735; 84100; 84156; 84550; 85025

== ENCOUNTER 2024-09-25 04:03 | Outpatient (CLI) | payer MEDICARE, SELFPAY ==
[2024-09-25 08:59] LABS: Abs Immature Grans 0.02 10^3/uL (0.0-0.06); Absolute Basophil Count 0.02 10^3/uL (0.0-0.2); Absolute Eosinophil Count 0.15 10^3/uL (0.0-0.7); Absolute Lymphocyte Count 1.03 10^3/uL (1.2-3.4); Absolute Monocyte Count 0.66 10^3/uL (0.1-0.8); Absolute Neutrophil Count 4.49 10^3/uL (1.2-6.7); Basophils % 0.3 %; Eosinophils % 2.4 %; HCT 43.7 % (40.0-50.0); HGB 15.1 g/dL (13.5-17.5); Immature Grans % 0.3 %; Lymphocytes % 16.2 %; MCH 32.5 pg (27.0-33.0); MCHC 34.6 % (32.0-36.0); MCV 94 fL (80-95); MPV 9.9 fL (8.0-11.0); Monocytes % 10.4 %; Neutrophils % 70.4 %; Platelet Count 158 10^3/uL (130-400); RBC 4.65 10^6/uL (4.36-5.78); RDW 13.5 % (11.8-14.1); RDW-SD 46.6 fL; WBC 6.37 10^3/uL (4.4-10.8)
[2024-09-25 09:01] LABS: Bilirubin Negative (Negative); Blood Negative (Negative); Clarity Clear (Clear); Glucose Negative (Negative); Ketones Negative (Negative); Leukocyte Esterase Negative (Negative); Nitrite Negative (Negative); Urobilinogen 0.2 mg/dL (Up to 0.2)
[2024-09-25 09:28] LABS: PROTEIN < 6.0 mg/dL
[2024-09-25 09:32] LABS: Cholesterol 150 mg/dL (<200)
[2024-09-25 09:34] LABS: ALT 67 U/L (16-63); AST 31 U/L (15-37); Alkaline Phosphatase 65 U/L (46-116); Anion Gap 8.2 mmol/L (3-11); BUN 23 mg/dL (7-18); Bilirubin, Total 1.1 mg/dL (0.2-1.0); CO2 26.8 mmol/L (21.0-32.0); CREATININE 1.6 mg/dL (0.70-1.30); Calcium 9.2 mg/dL (8.5-10.1); Chloride 103 mmol/L (98-107); Estimated GFR 49.94 (mL/min/1.73m2); Glucose 139 mg/dL (74-106); Magnesium 1.7 mg/dL (1.8-2.4); PHOSPHORUS 3.1 mg/dL (2.6-4.7); Potassium 4.1 mmol/L (3.5-5.1); Sodium 138 mmol/L (136-145); Total Protein 7.5 g/dL (6.4-8.2); Uric Acid 5.4 mg/dL (3.5-7.2)
[2024-09-25 09:45] LABS: COMMENT (LAB VIEW ONLY) 5.93 mg/dL
== END 2024-09-25 04:04 | disposition home or self-care (01) ==
PROVIDERS: PCP Nurse Practitioner Family; Visit Provider Nurse Practitioner Family
DX: Z94.0 Kidney transplant status (principal); Z79.899 Other long term (current) drug therapy
CPT/HCPCS: 36415; 80053; 80197; 81003; 82465; 82565; 83735; 84100; 84156; 84550; 85025

== ENCOUNTER 2025-01-01 08:27 | Outpatient (CLI) | payer MEDICARE, SELFPAY ==
[2025-01-01 08:58] LABS: HCT 43.0 % (40.0-50.0); HGB 14.8 g/dL (13.5-17.5); MCH 32.2 pg (27.0-33.0); MCHC 34.4 % (32.0-36.0); MCV 94 fL (80-95); MPV 9.5 fL (8.0-11.0); Platelet Count 160 10^3/uL (130-400); RBC 4.60 10^6/uL (4.36-5.78); RDW 14.1 % (11.8-14.1); RDW-SD 48.1 fL; WBC 5.85 10^3/uL (4.4-10.8)
[2025-01-01 09:09] LABS: Glucose Negative (Negative)
[2025-01-01 09:12] LABS: Hemoglobin A1C 6.0 % (<5.7)
[2025-01-01 09:46] LABS: Creatinine,Urine 53.36 mg/dL
[2025-01-01 09:47] LABS: PROTEIN 10.8 mg/dL; Prot/Crea Ur Ratio 0.20
[2025-01-01 10:00] LABS: ALT 69 U/L (16-63); AST 30 U/L (15-37); Albumin 4.1 g/dL (3.4-5.0); Alkaline Phosphatase 62 U/L (46-116); Anion Gap 7.6 mmol/L (3-11); BUN 23 mg/dL (7-18); Bilirubin, Total 1.1 mg/dL (0.2-1.0); CO2 29.4 mmol/L (21.0-32.0); Calcium 9.1 mg/dL (8.5-10.1); Calculated LDL 40 mg/dL (<100); Chloride 101 mmol/L (98-107); Cholesterol 141 mg/dL (<200); Estimated GFR 58.26 (mL/min/1.73m2); Glucose 147 mg/dL (74-106); HDL Cholesterol 43 mg/dL (>or=40); Magnesium 1.8 mg/dL (1.8-2.4); Potassium 4.1 mmol/L (3.5-5.1); Sodium 138 mmol/L (136-145); Total Protein 7.3 g/dL (6.4-8.2); Triglyceride 294 mg/dL (<150)
[2025-01-01 10:14] LABS: Vitamin D 25 Total 29 ng/mL (30-100)
[2025-01-01 10:18] LABS: Uric Acid 4.9 mg/dL (3.5-7.2)
[2025-01-02 09:24] LABS: Calcium (Random Urine) 9.9 mg/dL (See Note)
[2025-01-04 12:03] LABS: 1,25-Dihydroxyvitamin D 23 pg/mL (18-64)
== END 2025-01-01 08:28 | disposition home or self-care (01) ==
LOC: LBO 08:28
PROVIDERS: PCP Nurse Practitioner Family; Visit Provider Nurse Practitioner Family
DX: Z94.0 Kidney transplant status (principal); E55.9 Vitamin D deficiency, unspecified
CPT/HCPCS: 36415; 80053; 80061; 82306; 83735; 85027; 87799; 80197; 81003; 82340; 82565; 82652; 83036; 83970; 84100; 84105; 84156; 84550; 85045

== ENCOUNTER 2025-03-13 09:25 | Outpatient (CLI) | payer MEDICARE, SELFPAY ==
[2025-03-13 09:45] LABS: Glucose Negative (Negative)
[2025-03-13 09:47] LABS: Abs Immature Grans 0.01 10^3/uL (0.0-0.06); HCT 43.2 % (40.0-50.0); HGB 14.8 g/dL (13.5-17.5); Immature Grans % 0.2 %; MCH 31.8 pg (27.0-33.0); MCHC 34.3 % (32.0-36.0); MCV 93 fL (80-95); MPV 9.7 fL (8.0-11.0); Platelet Count 166 10^3/uL (130-400); RBC 4.65 10^6/uL (4.36-5.78); RDW 13.5 % (11.8-14.1); RDW-SD 45.5 fL; WBC 4.87 10^3/uL (4.4-10.8)
[2025-03-13 09:56] LABS: PROTEIN 11.4 mg/dL; Prot/Crea Ur Ratio 0.12
[2025-03-13 10:05] LABS: ALT 90 U/L (16-63); AST 36 U/L (15-37); Albumin 4.0 g/dL (3.4-5.0); Alkaline Phosphatase 56 U/L (46-116); Anion Gap 10.7 mmol/L (3-11); BUN 32 mg/dL (7-18); Bilirubin, Total 1.1 mg/dL (0.2-1.0); CO2 29.3 mmol/L (21.0-32.0); Calcium 9.9 mg/dL (8.5-10.1); Chloride 102 mmol/L (98-107); Estimated GFR 40.38 (mL/min/1.73m2); Glucose 149 mg/dL (74-106); Magnesium 1.7 mg/dL (1.8-2.4); Potassium 3.9 mmol/L (3.5-5.1); Sodium 142 mmol/L (136-145); Total Protein 7.5 g/dL (6.4-8.2); Uric Acid 6.1 mg/dL (3.5-7.2)
[2025-03-13 10:20] LABS: Calculated LDL 77 mg/dL (<100); Cholesterol 151 mg/dL (<200); HDL Cholesterol 50 mg/dL (>or=40); Triglyceride 120 mg/dL (<150)
== END 2025-03-13 09:26 | disposition home or self-care (01) ==
LOC: LBO 09:26
PROVIDERS: PCP Nurse Practitioner Family; Visit Provider Nurse Practitioner Family
DX: Z94.0 Kidney transplant status (principal)
CPT/HCPCS: 36415; 80053; 80061; 80197; 81003; 82565; 83735; 84100; 84156; 84550; 85025